=== PATIENT | male | born 1975 | race Caucasian/White ===

== ENCOUNTER 2018-02-08 11:14 | Outpatient (REF) | payer BC, SELFPAY ==
[2018-02-08 21:38] LABS: CREATININE 1.08 mg/dL (0.70-1.30)
== END 2018-02-08 11:34 ==
LOC: NCHCN 11:14
PROVIDERS: PCP Internal Medicine; Visit Provider Internal Medicine
DX: N17.9 Acute kidney failure, unspecified (principal)
CPT/HCPCS: 82565

== ENCOUNTER 2018-02-16 21:40 | Outpatient (REF) | payer BC, SELFPAY ==
[2018-02-16 22:04] LABS: TSH (W/Ref FT4) 1.59 uIU/mL (0.358-3.74)
== END 2018-02-16 22:00 ==
LOC: NCHCN 21:40
PROVIDERS: PCP Internal Medicine; Visit Provider Internal Medicine
DX: E66.9 Obesity, unspecified (principal)
CPT/HCPCS: 84443

== ENCOUNTER 2018-12-26 08:06 | Outpatient (CLI) | payer BC, SELFPAY ==
[2018-12-26 22:12] LABS: Calculated LDL 112 mg/dL; Cholesterol 179 mg/dL (50-200); HDL Cholesterol 52 mg/dL (40-60); Triglyceride 78 mg/dL (30-150)
== END 2018-12-26 08:26 ==
PROVIDERS: PCP Internal Medicine; Visit Provider Internal Medicine
DX: Z82.49 Family history of ischemic heart disease and other diseases of the circulatory system (principal); E66.9 Obesity, unspecified
CPT/HCPCS: 80061

== ENCOUNTER → 2020-01-22 09:38 | Outpatient (REF) | payer OTHER, SELFPAY ==
[2020-01-22 22:34] LABS: Anion Gap 10.6 mmol/L (3-11); BUN 18 mg/dL (7-18); CO2 23.4 mmol/L (21.0-32.0); CREATININE 1.21 mg/dL (0.70-1.30); Calcium 8.9 mg/dL (8.5-10.1); Calculated LDL 119 mg/dL (<100); Chloride 105 mmol/L (98-107); Cholesterol 186 mg/dL (<200); Glucose 98 mg/dL (74-106); HDL Cholesterol 48 mg/dL (40-60); Potassium 4.4 mmol/L (3.5-5.1); Sodium 139 mmol/L (136-145); Triglyceride 96 mg/dL (<150)
== END ==
LOC: NCHCN 09:38
PROVIDERS: PCP Internal Medicine; Visit Provider Internal Medicine
DX: E66.9 Obesity, unspecified (principal); Z13.220 Encounter for screening for lipoid disorders
CPT/HCPCS: 80048; 80061

== ENCOUNTER 2021-04-20 15:04 | Outpatient (REF) | payer OTHER, SELFPAY ==
[2021-04-20 15:37] LABS: Anion Gap 11.3 mmol/L (3-11); BUN 15 mg/dL (7-18); CO2 23.7 mmol/L (21.0-32.0); CREATININE 1.2 mg/dL (0.70-1.30); Calcium 8.9 mg/dL (8.5-10.1); Calculated LDL 128 mg/dL (<100); Chloride 102 mmol/L (98-107); Cholesterol 188 mg/dL (<200); Glucose 97 mg/dL (74-106); HDL Cholesterol 39 mg/dL (40-60); Potassium 4.3 mmol/L (3.5-5.1); Sodium 137 mmol/L (136-145); Triglyceride 106 mg/dL (<150)
== END 2021-04-20 15:05 | disposition home or self-care (01) ==
LOC: NCHCN 15:04
PROVIDERS: PCP Internal Medicine; Visit Provider Internal Medicine
DX: E66.9 Obesity, unspecified (principal); R03.0 Elevated blood-pressure reading, without diagnosis of hypertension; Z13.220 Encounter for screening for lipoid disorders; Z82.49 Family history of ischemic heart disease and other diseases of the circulatory system
CPT/HCPCS: 80048; 80061; 85610

== ENCOUNTER 2021-06-18 20:45 | Outpatient (REF) | payer OTHER, SELFPAY ==
--- OUTSIDE RECORDS SUMMARY | 2021-06-18 20:50 | XMS_ITS | Encounter Summary ---
:1975 Author Organization [facility] Address [address] [place] [address] Care Team Providers Name Role Phone Alberto Kaufman MD Primary Care Provider Reason for Visit Reason Comments Follow-up psoriasis - doing well on ot ezla, no concerns today Encounter Details Date Type Department Care Team Description 02/18/2016 Office Visit [facility] Khushbu Kaufman MD [address] [place] [address] Psoriasis (Primary Dermatology - [facility] Yennifer Cornejo MD [address] [place] [address] Dx) [place] Parviz Mckinley MD [address] [place], [place] [phone] [place] [address] [id number] Social History Tobacco Use Types Packs/Day Years Used Date Former Smoker Cigarettes 2 19 Quit: 05/15/19 15 Smokeless Tobacco: Never Used Comments: exposed to second hand smoke a s a child Alcohol Use Standard Drinks/Week Comments Yes 0 (1 standard drink = 0.6 oz pure alcoho l) social Alcohol Habits Answer Date Recorded How often do you have a drink containing alcohol? Not asked How many drinks containing alcohol do you have on a typical Not asked day when you are drinking? How often do you have six or more drinks on one occasion? No t asked Comment: social 07/24/2014 Sex Assigned at Date Recorded Not on file documented as of this encounter Functional Status Functional Status Response Date of Assessment Because of a physical, mental, or emotional condition, No 10/29/2014 does this person have difficulty doing errands alone such as visiting a doctor's office or shopping? Cognitive Status Response Date of Assessment Because of a physical, mental, or emotional condition, No 10/29/2014 does this person have serious difficulty concentrating, remembering, or making decisions? documented as of this encounter Patient Instructions Patient InstructionsParviz Mckinley MD - 02/18/2016 10:00 EST Recommendations for Sun Protection Ultraviolet (UV) radiation is a known carcinogen (cancer-causing agent) and is primarily responsiblefor most skin cancers, including Basal Cell Carcinoma, Squamous Cell Carcinoma, and many Melanomas. UV radiation also rapidly ages the skin, leading to wrinkles, uneven color, and poor texture. Minimizing UV exposure has been shown in multiple studies to decrease the likelihood of developing cancers and pre-cancers of the skin, as well as improve overall appearance. To minimize UV exposure: 1) Avoid exposure to sunlight during the middle of the day (10am to 4pm). Seek shade when outside during these hours. Limit outdoor activities to automotive fuel injection servicer and/or evening hours when the sunlight isless intense. Remember that UV is reflected from water and snow, and can pass through window glass. It is still possible to get burned during cloudy weather and in the winter months. You can check the forecast for the UV Index in your area at most weather sites online. If the UV index is 3 or higher, sun protection/avoidance is recommended. 2) Wear protective clothing. Hats with wide brims that cover the ears and neck, sunglasses (sun exposure increases your risk for cataracts), long-sleeved shirts, long pants, and closed-top shoes offer good protection. Many makers of outdoor clothing test their fabrics for UV Protection Factor (UPF), which is a guide to the level of protection a particular item of clothing should provide. In general, loose weaves (Cotton) and quality analyst-colored fabrics offer less protection than tighter weaves or darker/thicker fabrics. It is possible to get a sunburn through clothing, especially if it is wet. 3) Use sunscreen on exposed areas. Choose a sunscreen that has a Sun Protection Factor (SPF) of 30+ or higher. Apply the sunscreen generously (so much that you can barely rub it in) to exposed areas 30minutes before sun exposure. Reapply every 2-3 hours, especially if you are in water or sweating. Ifyou tend to break out from sunscreen, choose a sunscreen designed for Sensitive Skin and/or one with physical blocking agents, such as Zinc Oxide and Titanium Dioxide. For vigorous activity, look for Sport sunscreens, which are resistant to sweating. 4) Avoid artificial sources of UV, such as tanning beds or sun lamps. The UV emitted by these devices is just as damaging, if not more so, than natural sunlight. There is a well-documented increase in the incidence of all common skin cancers in frequent tanning bed users. Other considerations: Vitamin D: Exposure to UV light is one of the ways your body gets Vitamin D, a necessary nutrient. Other sources are from the diet and/or dietary supplements. If you are actively avoiding the sun, it may be advisable to discuss Vitamin D supplementation with your Primary Care Provider (PCP). In general, taking a supplement of 1,000 to 2,000 International Units (IU) of Vitamin D3 is safe and well-tolerated in individuals who get minimal sun exposure and have normal kidney function. However, more or less Vitamin D may be recommended, depending on your individual needs, and the use of such supplementsshould be discussed with your PCP. For more information about sun protection and skin cancer: www.skincancer.org Recommended sunscreens: Chemical sunscreen Neutrogena Ultra Sheer Dry Touch (helioplex) Aveeno (same sunscreen as in Neutrogena) Coppertone Sport La Yayo-Posay Anthelios (mexoryl -good UVA and UVB) Vichy (mexoryl ??? available in [place]) Gel formulations good for hair bearing skin Bullfrog Alcohol based - goes on quickly and good for skin with hair Solbar Physical sunblock good for sensitive skin (titanium dioxide and zinc oxide chemical/fragrance free) Blue Lizard sensitive COTZ TiZO (comes in tinted form) Neutrogena pure and free baby or sensitive Recommended sun protection clothing websites www.sunprecautions.Ideedock www.coolibar.Ideedock www.Business Engine www.Military Wraps documented in this encounter Discharge Disposition Disposition Code Departure Means Destination Auto Discharge documented in this encounter Progress Notes Parviz Mckinley MD - 02/18/2016 1000 EST Dermatology Outpatient Visit Note Chief Complaint Patient presents with ??? 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 Akbar is a 40 y.o. male who presents for follow up for palmoplantar psoriasis. Since starting the apremilast he reports his hands are 100% better his feet are 60% better. He is very happy with treatment. Denies fevers, chills, and infections. The patient has no other concerns today on exam. See documentation in PRISM for medical, surgical, social and family history, and the review of systems which I reviewed at this visit. He has a current medication list which includes the following prescription(s): apremilast, apremilast, clobetasol, and ketoconazole. He is allergic to penicillins. Objective Mr. Akbar is healthy male that is alert and oriented to person, place and time. He has Fitzpatricktype I skin. Cutaneous exam was performed today of the scalp, face, neck, upper extremities, hands, trunk, lower extremities, feet. The remainder of the skin examination was otherwise normal except for: 1. On the palmar hands there is no scale 2. On the plantar feet bilaterally there is thick scale, significantly improved from last visit, nowjust involving the posterior heels. 3. 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 Patient very satisfied. 100% hands improved. ?? Continue apremilast 30mg BID, refills taken care of by specialty pharmacy ?? Follow up in 6 months. ?? Latest literature shows no lab monitoring needed. Follow up: 6 months Parviz Mckinley MD 02/18/2016 10:24 Attestation Statement: I saw and examined the patient with the resident/fellow. I agree with the findings and plan of care documented in the resident's/fellow's note. Yennifer Cornejo MD 03/17/2016 Raya Thao - 02/18/2016 1000 EST Review of Systems Constitutional: Negative for fatigue, fever and unexpected weight change. HENT: Negative for mouth sores. Eyes: Negative for pain. Respiratory: Negative for cough and shortness of breath. Cardiovascular: Negative for chest pain and palpitations. Gastrointestinal: Negative for abdominal pain, blood in stool, constipation, diarrhea, nausea and vomiting. Genitourinary: Positive for frequency. Negative for dysuria and hematuria. Musculoskeletal: Negative for myalgias, joint swelling, arthralgias and muscle stiffness in the morning. Skin: Negative for rash. Neurological: Negative for numbness and headaches. Endo/Heme/Allergies: Does not bruise/bleed easily. Psychiatric/Behavioral: Negative for sleep disturbance. The patient is not nervous/anxious. Raya Unger 02/18/2016 10:07 documented in this encounter Plan of Treatment Not on filedocumented as of this encounter Visit Diagnoses Diagnosis Psoriasis - Primary Other psoriasis documented in this encounter Care Teams Answering Service Telephone Operator Relationship Specialty Start Date End Date Larry Kaufman MD PCP - General 04/01/14 [address] [place] [address] documented as of this encounter
--- OUTSIDE RECORDS SUMMARY | 2021-06-18 20:50 | XMS_ITS | Clinical Summary ---
:1975 Author Organization [facility] Address [address] [place] [address] Care Team Providers Name Role Phone Alberto Kaufman MD Primary Care Provider Allergies Active Allergy Reactions Severity Noted Date Comments Penicillins Anaphylaxis High 04/02/2014 Closing of thro at Medications Medication Sig Dispensed Refills Start Date End Date Status clobetasol (TEMOVATE) Apply 60 g 45 g 5 09/11/2015 Active 0.05 % ointment topically to affected area 2 times daily. Apply topically twice a day to affected areas. Do not apply to face, armpit or groin. ketoconazole Apply topically to 1 Bottle 11 09/11/2015 Active (NIZORAL) 2 % affected area, shampooIndications: leave on 3-5 Seborrheic dermatitis minutes then rinse off apremilast (OTEZLA Follow directions 1 Pack 0 09/16/2015 Active STARTER) 28 day dose on dose pack. pack Specialty Pharmacy Additional Information Patient not taking. Reported on 02/18/2016 apremilast (OTEZLA) 30 mg Take 1 Tab by mouth 2 180 Tab 1 Active tablet times daily. Specialty Pharmacy hydrocortisone 2.5 % Apply topically 2 times 20 g 3 05/06 Active creamIndications: Seborrheic daily. dermatitis Active Problems No known active problems Encounters Date Type Specialty Care Team Description 05/03/2021 Transcribe Orders Gastroenterology and Fei Alvarez for Hepatology Jacquie Villa colon cancer (Primary Dx) from Last 3 Months Family History Medical History Relation Name Comments Cardiac Disease Brother Arthritis Father Defects Father Hearing Loss Father Heart Attack Father Heart Disease Father Hypertension Father Stroke Father Vision Loss Father Arthritis Mother Cancer Mother Depression Mother Hearing Loss Mother Hypertension Mother Relation Name Status Comments Brother Father Mother Social History Tobacco Use Types Packs/Day Years [...] Assigned at Date Recorded Not on file Last Filed Vital Signs Vital Sign Reading Time Taken Comments Blood Pressure 150/86 07/24/2014 1159 EDT Pulse 78 07/24/2014 1159 EDT Temperature 36.7 ??C (98.1 ??F) 07/24/2014 1159 EDT Respiratory Rate 16 07/24/2014 1159 EDT Oxygen Saturation 98% 07/24/2014 1159 EDT Inhaled Oxygen Concentration - - Weight 172.4 kg (380 lb) 07/24/2014 1159 EDT Height 188 cm (6' 2.02) 07/24/2014 1159 EDT Body Mass Index 48.77 07/24/2014 1159 EDT Plan of Treatment Health Maintenance Due Date Last Done Comments COVID-19 Vaccine (1) 11/03/1979 Hepatitis C Screen Completed 02/27/2015 Care Teams Physical Therapy Attendant Relationship Specialty Start Date End Date Larry Kaufman MD PCP - General 04/01/14 [address] [place] [address]
--- OUTSIDE RECORDS SUMMARY | 2021-06-18 20:50 | XMS_ITS | Encounter Summary ---
:1975 Author Organization [facility] Address [address] [place] [address] Care Team Providers Name Role Phone Alberto Kaufman MD Primary Care Provider Reason for Visit Reason Onset Date Comments Requesting Sooner Appointment 05/02/2016 Encounter Details Date Type Department Care Team Description 05/02/2016 Telephone [facility] Olivia Mckinley MD Requesting Sooner Dermatology - Main [address] [facility] [place] [address] [address] [place] [address] Social History Tobacco Use Types Packs/Day Years [...] making decisions? documented as of this encounter Ordered Prescriptions Prescription Sig Dispensed Refills Start Date End Date hydrocortisone 2.5 % Apply topically 2 20 g 3 05/07/19 17 creamIndications: times daily. Seborrheic dermatitis documented in this encounter Miscellaneous Notes Telephone Encounter - Parviz Mckinley MD - 05/06/2016 1117 EDT I will have the patient use hydrocortisone 2.5% cream twice daily for 5-10 days. I will call this in to his pharmacy. Disp 1 bottle, 1 R. If no improvement then he should come in. Parviz Mckinley MD 11:18 05/06/2016 elephone Encounter - Eliane Viera RN - 05/04/2016 1357 EDT Patient reports: Developed a flare of his symptoms on Monday night Has a little on his face Feet are starting to scale Both hands are starting to scale up, developing small blisters No acute illness No change in personal care products No change in medications Treatment: Taking Apremilast as prescribed morning and evening Patient wanted to be seen for this flare however his work schedule does not fit with the availability of our open appointments Patient instructed to resume his topical medications Clobetasol 0.05% ointment to hands and feet twice daily Ketoconazole shampoo to face, leave on for 3-5 min and rinse off If this is not helpful patient will phone Monday AM to see if there have been any cancellations Triage note to Parviz Mckinley MD to make him aware and for any further instructions ELIANE VIERA RN 05/04/2016 14:11 elephone Encounter - Kelley Campos - 05/02/2016 0955 EDT Patient would like to be seen today or tomorrow for a flare up of symptoms, patient did not care to elaborate. Please call to schedule. Patient sees Dr. Mckinley, but is willing to see any provider. documented in this encounter Plan of Treatment Not on filedocumented as of this encounter Visit Diagnoses Diagnosis Seborrheic dermatitis - Primary Seborrheic dermatitis, unspecified documented in this encounter Care Teams Cardiology Consultants Relationship Specialty Start Date End Date Larry Kaufman MD PCP - General 04/01/14 [address] [place] [address] documented as of this encounter
--- OUTSIDE RECORDS SUMMARY | 2021-06-18 20:50 | XMS_ITS | Encounter Summary ---
:[address] [facility] Address [address] [place] [address] Care Team Providers Name Role Phone Alberto Kaufman MD Primary Care Provider Encounter Details Date Type Department Care Team Description 04/14/2016 Ambulatory Pharmacy [facility] Ambulatory Pharmacy [facility] Main [place] [address] [place] [address] Social History Tobacco Use Types Packs/Day Years [...] making decisions? documented as of this encounter Plan of Treatment Not on filedocumented as of this encounter Visit Diagnoses Not on filedocumented in this encounter Care Teams Municipal Court Judge Relationship Specialty Start Date End Date Larry Kaufman MD PCP - General 2/17/15 [address] [place] [address] documented as of this encounter
--- OUTSIDE RECORDS SUMMARY | 2021-06-18 20:50 | XMS_ITS | Encounter Summary ---
:1975 Author Organization [facility] Address [address] [place] [address] Care Team Providers Name Role Phone Alberto Kaufman MD Primary Care Provider Encounter Details Date Type Department Care Team Description 02/11/2016 Ambulatory Pharmacy [facility] Ambulatory Pharmacy [facility] Main [place] [address] [place] [address] Social History Tobacco Use Types [...] making decisions? documented as of this encounter Progress Notes Sonya Lu - 02/11/2016 5508 EST [facility] will deliver Monday02/12/16 between 9am-12pm. (Note for GMM: Go through first door into the breezeway - may look like you are entering the house - and then know on the second door so patient can hear knocking. documented in this encounter Plan of Treatment Not on filedocumented as of this encounter Visit Diagnoses Not on filedocumented in this encounter Care Teams Ux Architect Relationship Specialty Start Date End Date Larry Kaufman MD PCP - General 04/01/[address] [place] [address] documented as of this encounter
--- OUTSIDE RECORDS SUMMARY | 2021-06-18 20:50 | XMS_ITS | Encounter Summary ---
:1975 Author Organization [facility] Address [address] [place] [address] Care Team Providers Name Role Phone Alberto Kaufman MD Primary Care Provider Encounter Details Date Type Department Care Team Description 05/11/2016 Ambulatory Pharmacy [facility] Ambulatory Pharmacy [facility] Main [place] [address] [place] [address] Social History Tobacco Use Types [...] on filedocumented in this encounter Care Teams Television Production Assistant Relationship Specialty Start Date End Date Larry Kaufman MD PCP - General 2/17/15 [address] [place] [address] documented as of this encounter
--- OUTSIDE RECORDS SUMMARY | 2021-06-18 20:50 | XMS_ITS | Encounter Summary ---
:1975 Author Organization [facility] Address [address] [place] [address] Care Team Providers Name Role Phone Alberto Kaufman MD Primary Care Provider Reason for Referral Referral (Routine/Next Available) - Receiving Office to Obtain Authorization Specialty Diagnoses / Procedures Referred By Contact Refer red To Contact Diagnoses Screening for colon cancer Jacquie Alvarez Mp[facility] Gi Procedures COLONOSCOPY [address] [facility] [place] [address] [place] [address] Fax: Referral ID Status Reason Start Expiration Visits Visits Date Date Requested Authorized [id number] Receiving Office 05/03/2021 1 1 to Obtain Authorization Encounter Details Date Type Department Care Team Description 05/03/2021 Transcribe Orders [facility] Mil Alvarez for Gastroenterology - Main Jacquie Villa colon cancer [place] [address] [facility] (Primary Dx) [address] [phone] Social History Tobacco Use Types Packs/Day Years [...] as of this encounter Plan of Treatment Scheduled Orders Name Type Priority Associated Diagnoses Order S chedule COLONOSCOPY GI Routine Screening for colon cancer E xpected: 05/03/2021 (Approximate), Expires: 11/03/2022 documented as of this encounter Visit Diagnoses Diagnosis Screening for colon cancer - Primary Special screening for malignant neoplasm s, colon documented in this encounter Care Teams Equal Opportunity Officer Relationship Specialty Start Date End Date Larry Kaufman MD PCP - General 04/01/14 [address] [place] [address] documented as of this encounter
--- OUTSIDE RECORDS SUMMARY | 2021-06-18 20:50 | XMS_ITS | Encounter Summary ---
:1975 Author Organization [facility] Address [address] [place] [address] Care Team Providers Name Role Phone Alberto Kaufman MD Primary Care Provider Reason for Visit Reason Onset Date Comments Appointment Related 08/29/2016 Encounter Details Date Type Department Care Team Description 08/29/2016 Telephone [facility] Margoth Gifford sa, MD Appointment Related Dermatology - [address], [address] [place], [place] [id number] [place] [address] [phone] (Wo rk) Social History Tobacco Use Types Packs/Day Years [...] making decisions? documented as of this encounter Miscellaneous Notes Telephone Encounter - Latrice Holden - 08/29/[address] Gifford, Can you please reschedule him? Can double book next Monday or week after. He asa Dr. Mckinley patient who missed his appt with me recently. Per Emily Sabillon MA: left message for patient to return call to schedule appointment. 08/25/2016. documented in this encounter Plan of Treatment Not on filedocumented as of this encounter Visit Diagnoses Not on filedocumented in this encounter Care Teams Allergy Nurse Relationship Specialty Start Date End Date Larry Kaufman MD PCP - General 04/01/14 [address] [place] [address] documented as of this encounter
--- OUTSIDE RECORDS SUMMARY | 2021-06-18 20:50 | XMS_ITS | Encounter Summary ---
:1975 Author Organization [facility] Address [address] [place] [address] Care Team Providers Name Role Phone Alberto Kaufman MD Primary Care Provider Reason for Visit Reason Onset Date Comments Appointment Related 02/10/2016 Encounter Details Date Type Department Care Team Description 02/10/2016 Telephone [facility] Rosana Pereira nt Related Dermatology - [facility] NANETTE Mckeon [address] [place] [address] Social History Tobacco Use Types [...] documented as of this encounter Progress Notes Linda Pereira RPH - 02/10/2016 1435 EST Otezla (Apremilast): I spoke with Kike today regarding his Otezla refill. He reports that he has not missed any doses and has 6 days of medication remaining. We discussed taking the medication twice daily, as prescribed. He feels that it has helped to clear the psoriasis on his hands and feet and he is happy with the results. He did not complain of any adverse effects associated with the medication. Patient was instructed to call clinic with any questions. He would like to schedule a follow-up appointment with Dr. Mckinley. Linda Pereira, PharmD Pharmacist Clinician - Dermatology 02/10/2016 documented in this encounter Miscellaneous Notes Telephone Encounter - Eliane Viera RN - 02/15/2016 1204 EST Patient scheduled 02/18/16 at 10 AM with MD ELIANE Evans RN 02/15/2016 12:04 documented in this encounter Plan of Treatment Not on filedocumented as of this encounter Visit Diagnoses Not on filedocumented in this encounter Care Teams Heel Seat Fitter Machine Relationship Specialty Start Date End Date Larry Kaufman MD PCP - General 04/01/14 [address] [place] [address] documented as of this encounter
--- OUTSIDE RECORDS SUMMARY | 2021-06-18 20:50 | XMS_ITS | Encounter Summary ---
:1975 Author Organization [facility] Address [address] [place] [address] Care Team Providers Name Role Phone Alberto Kaufman MD Primary Care Provider Reason for Visit Reason Onset Date Comments Prior Auth, Medication 02/11/2016 Encounter Details Date Type Department Care Team Description 02/11/2016 Telephone [facility] Olivia Mckinley MD Prior Auth, Medication Ambulatory Pharmacy - [address] [place] [address] [facility] [place] [address] Social History Tobacco Use Types Packs/Day Years [...] this encounter Miscellaneous Notes Telephone Encounter - Sonya Lu - 02/11/2016 1611 EST Prior Authorization Approval Medication: Otezla 30mg Tablets Approved: 02/11/16-02/10/17 Authorization Number: [id number] Benefits Information or Other Notes: [facility] Pharmacy: [facility] Prior Authorization Submission Process Medication: Otezla 30mg Tablets Insurance: [facility] Date PA Request Received: 02/10/16 PA Submission Date: 02/11/16 Submitted by: Sonya Huitron Phone: documented in this encounter Plan of Treatment Not on filedocumented as of this encounter Visit Diagnoses Not on filedocumented in this encounter Care Teams Spinning Frame Changer Relationship Specialty Start Date End Date Larry Kaufman MD PCP - General 04/01/14 [address] [place] [address] documented as of this encounter
--- OUTSIDE RECORDS SUMMARY | 2021-06-18 20:51 | XMS_ITS | Encounter Summary ---
:1975 Author Organization [facility] Address [address] [place] [address] Care Team Providers Name Role Phone Alberto Kaufman MD Primary Care Provider Encounter Details Date Type Department Care Team Description 03/10/2015 Orders Only [facility] Terence Beauchamp, [facility] Dermatology - [address] [phone] [place] [address] Social History Tobacco Use Types Packs/Day Years [...] Sig Dispensed Refills Start Date End Date adalimumab (HUMIRA PEN) 40 Inject 1 Pen into 6 Pen 2 07/21/2015 mg/0.8 mL pen kit the skin every 14 days documented in this encounter Plan of Treatment Not on filedocumented as of this encounter Visit Diagnoses Not on filedocumented in this encounter Care Teams Orthopedic Physical Therapist Relationship Specialty Start Date End Date Larry Kaufman MD PCP - General 04/01/14 [address] [place] [address] documented as of this encounter
--- OUTSIDE RECORDS SUMMARY | 2021-06-18 20:51 | XMS_ITS | Encounter Summary ---
:1975 Author Organization [facility] Address [address] [place] [address] Care Team Providers Name Role Phone Alberto Kaufman MD Primary Care Provider Reason for Visit Reason Comments Lung Infection Was diagnosed with pneumonia and treated with Levaquin and Z-pack 2 weeks ago. C/o right lung pa in starting 9 days ago and found to have a pus pocket to lung. Feels that he has less room to breath comfortably but denies SOB. No recent fevers. No cough. Referred by field return repairer for further ev al and possible drainage. Encounter Details Date Type Department Care Team Description 05/27/2014 Emergency [facility] Allen Acevedo IV, MD [address] [place] [address], [address] [place] [address] Pleural effusion (Primary Dx); Emergency Department Emergency, MD Juan Pneumonia - [facility] [address] [place] [address] Social History Tobacco Use Types Packs/Day Years Used Date Light Tobacco Smoker 0.25 Sex Assigned at Date Recorded Not on file documented as of this encounter Last Filed Vital Signs Vital Sign Reading Time Taken Comments Blood Pressure 139/90 05/27/2014 2355 EDT Pulse 78 05/27/2014 2355 EDT Temperature 36.9 ??C (98.5 ??F) 05/27/2014 2355 EDT Respiratory Rate 16 05/27/2014 2355 EDT Oxygen Saturation 99% 05/27/2014 2355 EDT Inhaled Oxygen Concentration - - Weight 172.4 kg (380 lb) 05/27/20141926 EDT Height 188 cm (6' 2) 05/27/20141926 EDT Body Mass Index 48.79 05/27/20141926 EDT documented in this encounter Discharge Instructions Ankit James IV, MD - 05/27/2014 Follow up as directed by the pulmonary service for the IR thoracentesis. Seek re-evaluation for worsening symptoms. documented in this encounter Discharge Disposition Disposition Code Departure Means Destination Home or Self Care Walk-out Home documented in this encounter Consult Notes Amalia Vasquez MD - 05/27/2014 2244 EDT Pulmonary consult Date: 05/27/2014 PCP: Larry Kaufman MD Chief Complaint: Pleurisy, PNA HPI: Pt. Is a pleasant 38 yo M who 2 weeks prior began to develop right sided back pain, shoulder pain and pleurisy associated with a yellow/green productive cough and fevers. CXR and CT A/P revealed a RLL PNA without associated effusion. He was treated with a course of levofloxacin which he completed with resolution of his fevers and transition to a dry cough 5 days ago, however his right sided pleurisy has persisted. A chest xray was completed at that time which revealed a RLL effusion. He was placed on azithromycin 5 days ago on the day of that CXR and has completed the Z pack as well. One day prior to presentation today he developed worsening right sided pleurisy and splinting. His PCP was in contact with our pulmonary office and given concern of a parapneumonic effusion he presented to our ED for CT Chest. ROS Positive: As per HPI ROS Negative: No hemoptysis, joint pains, rash. Review of Systems All other systems reviewed and negative, a 12 point ROS was performed. Past Medical History As per HPI Past Surgical History None Medications As per HPI Allergies Allergies Allergen Reactions ??? Penicillins Anaphylaxis Closing of throat Social History Works in an office, distant trace smoking history Family History Brother with congenital heart disease Examination BP 145/83 Pulse 85 Temp(Src) 37.1 ??C (98.7 ??F) (Oral) Resp 18 Ht 188 cm (74) Wt 172.367kg (380 lb) BMI 48.77 kg/m2 SpO2 100% RA Gen: Alert and oriented, no evidence of distress Eyes: anicteric Mouth: poor to moderate dentition Neck: no cervical or supraclavicular adenopathy CVS: RRR, S1+S2 normal, no murmurs/rubs/gallop Resp: No respiratory distress, clear Abdo: Soft, non-tender. No masses/hepatosplenomegaly, Bowel sounds normal. Ext: No cyanosis or edema Neuro: Grossly intact Labs: Lab Results Component Value Date WBC 12.42* 05/27/2014 HGB 13.1* 05/27/2014 HCT 38.4* 05/27/2014 MCV 81 05/27/2014 PLT 358* 05/27/2014 Imaging: CT chest here: Layering right sided small to moderate pleural effusion. Some associated consolidated lung. Bedside US: Simple appearing 2cm deep pleural effusion on right, none on left Impression: Pt. Is a pleasant 38 yo M who presents with CAP for the past 2 weeks complicated by current parapneumonic effusion without signs of active infection. Parapneumonic effusion causing active pleurisy does require sampling to ensure that this is not purulent in nature. Recommendations: -IR guided thoracentesis with reflex to chest tube if purulent effusion (order in, will call IR tomorrow) -Please send fluid for pH, glucose, LDH, protein, gram stain (All orders are in) -Stable for D/C currently Jared Ahmadi MD Attestation statement: I saw and examined the patient with the resident/fellow. I agree with the findings and plan of care documented in the resident's/fellow's note. Patient seen at outside ED 15 days ago with back and shoulder pain and fevers. CT abdomen perfomed at that time and showed a RLL cvlorhefem-wjnsrdohyj-[id number] significant effusion. Patient was given a course of levaquin but back pain/shoulder pain persisted as did fevers. He had a CXR on 05/23/14 which showed a new right pleural effusion. Patient here this evening for further evaluation of the effusion. He reports that his fevers have improved somewhat but it remains difficult to take a deep breath and he continues to have pleuritic chest/back pain. CT chest performed this evening that shows amoderate right-sided effusion without clear evidence of loculation, with some compressive atelectasis but otherwise normal appearing lung parenchyma. Patient with a parapneumonic effusion that warrants sampling. Will: -arrange IR tap in am with tube drainage if purulent -patient told to be NPO until he hears from us in am Amalia Vasquez MD documented in this encounter ED Notes Chloé Sampson - 05/27/20142027 EDT Blood drawn via saline lock per protocol, tiger and purple tube(s) sent to lab per order. Alonzo taylor RN - 05/27/20142024 EDT Pt resting in bed, denies SOB, lung sounds clear but diminished; pt able to take deep inspiration without increased pain; placed pt O2 sat monitoring; O2 sat = 99% RA Ankit Acevedo IV, MD - 05/27/20141950 EDT DOS: 05/27/2014 Chief Complaint Patient presents with ??? Lung Infection Was diagnosed with pneumonia and treated with Levaquin and Z-pack 2 weeks ago. C/o right lung painstarting 9 days ago and found to have a pus pocket to lung. Feels that he has less room to breathcomfortably but denies SOB. No recent fevers. No cough. Referred by field return repairer for further eval and possible drainage. The patient is a 38 y.o. male who presents today with Lung Infection HPI Comments: Kike Akbar is a 38 y.o. male with a recent history of pneumonia, who presents to the ED complaining of dyspnea. Patient states that recently he was diagnosed with pneumonia at [facility]. He states that he has been following up with his PCP but this afternoon he started having a lot of trouble breathing. Patient denies chills, fever, hemoptysis, headache, chest pain, and diaphoresis. He reports feeling a tightness in his chest when he inhales deeply. Shortness of Breath Severity: Moderate Onset quality: Gradual Timing: Constant Progression: Worsening Chronicity: New Context: not activity, not emotional upset, not known allergens, not pollens, not strong odors, not URI and not weather changes Relieved by: Nothing Worsened by: Nothing tried Ineffective treatments: None tried Associated symptoms: fever (last fever 2 days ago) Associated symptoms: no abdominal pain, no chest pain, no cough, no diaphoresis and no headaches Risk factors: obesity and tobacco use The history is provided by the patient and the spouse. Review of Systems Constitutional: Positive for fever (last fever 2 days ago). Negative for diaphoresis. HENT: Negative for facial swelling, nosebleeds, postnasal drip and sneezing. Eyes: Negative for pain. Respiratory: Positive for shortness of breath. Negative for cough. Cardiovascular: Negative for chest pain and leg swelling. Gastrointestinal: Negative for abdominal pain. Genitourinary: Negative for dysuria, frequency, hematuria and flank pain. Musculoskeletal: Negative for myalgias, back pain and arthralgias. Neurological: Negative for seizures and headaches. Psychiatric/Behavioral: Negative for behavioral problems, sleep disturbance and agitation. The patient is not hyperactive. All other systems reviewed and are negative. History reviewed. No pertinent past medical history. History reviewed. No pertinent past surgical history. Allergies Allergen Reactions ??? Penicillins Anaphylaxis Closing of throat History Substance Use Topics ??? Smoking status: Light Tobacco Smoker -- 0.25 packs/day ??? Smokeless tobacco: Not on file ??? Alcohol Use: Not on file Family History Problem Relation Age of Onset ??? Heart Attack Father ??? Cardiac Disease Brother Vital Signs Temp: 36.9 ??C (98.5 ??F) Temp src: Oral Pulse: 78 Resp: 16 SpO2: 99 % BP: 139/90 mmHg BP Device: BP Machine Patient Position: Sitting BP Cuff Location: Right arm O2 Device: None (Room air) Physical Exam Constitutional: He is oriented to person, place, and time. He appears well-nourished. Obese HENT: Head: Normocephalic and atraumatic. Eyes: Conjunctivae are normal. Pupils are equal, round, and reactive to light. Neck: Normal range of motion. Cardiovascular: Normal rate and regular rhythm. Pulmonary/Chest: Effort normal and breath sounds normal. Lung sounds nl Abdominal: Soft. Morbidly obese Musculoskeletal: He exhibits no edema. Neurological: He is alert and oriented to person, place, and time. Skin: Skin is warm. Psychiatric: He has a normal mood and affect. His behavior is normal. Nursing note and vitals reviewed. Radiology orders: CHEST PA AND LATERAL CT CHEST W CONTRAST Imaging Results CT CHEST W CONTRAST (Final result) Result time: 05/28/14 10:35:[address] CHEST WO CONTRAST Final result Narrative: CT CHEST W CONTRAST 05/27/2014 9:10 PM Signs and Symptoms/Comments: R pleural effusion v empyema Technique: A single breath-hold helical CT acquisition was performed through the chest on a multidetector-row scanner with a reconstructed slice thickness of 3 mm and retrospectively reconstructed 0.9 mm thick sections with 0.45 mm overlapping intervals. The scans were obtained from the lung apices through the bases during the intravenous administration of 90-100 cc of 370 mg% nonionic contrast injected at a rate of 2 cc/second. Scans were reviewed on a dedicated PACS workstation for analysis. Comparison: Chest radiograph one hour prior. Findings: The chest wall is normal. No enlarged mediastinal or hilar nodes are present. The heart and pericardium are normal. There is mild diffuse large airways thickening. A 3 mm nodule is present in the right upper lobe (#26). Additional 3 mm nodules which have a triangular configuration are present in the right middle lobe (#386) as well as within the right lower lobe (#371). A few scant areas of centrilobular emphysema are present within the upper lungs. Mild peripheral reticulations are noted within the right upper lobe (#262). There is passive atelectasis within the right lower lobe involving the posterior lateral basal segments secondary to a small right pleural effusion. There is a focal region of heterogeneous low attenuation within the subpleural regions of the lateral basilar segments (#134). No pleural abnormalities are present on the left. The visualized portions of the upper abdomen are normal. There is mild heterogeneous appearance of the medullary cavity with involving the anterior aspect of the right fourth rib (#90), felt to be benign. The bones are otherwise unremarkable for age. Impression: 1. Although there is a simple appearance of a small right pleural fluid collection, there is a focal region of heterogeneous attenuation involving a subpleural region of atelectasis within the right lower lobe suggestive of pneumonia and an associated parapneumonic effusion. In a patient with smoking history, it would be reasonable to obtain followup PA and lateral radiographs to confirm resolution of these findings. 2. Scattered 2-3 mm nodules within the lungs are felt to be inflammatory and/or subpleural/intraparenchymal lymph nodes. 3. Mild emphysema. CHEST PA AND LATERAL (Final result) Result time: 05/27/14 20:22:26 Final result Narrative: CHEST PA AND LATERAL 05/27/2014 8:06 PM Signs and Symptoms/Comments: PNA Comparison: May 23, 2014 and outside study Findings: PA and lateral views of the chest. Heart size is normal. Pulmonary vasculature is normal. The left lung is clear. There is costophrenic angle blunting and increased opacity in the right lung base compatible with effusion and probable associated airspace disease. The lungs are otherwise clear. Bones and soft tissues are age-appropriate. Impression: Continued increased opacity and costophrenic angle blunting in the right lung base which is similar to the previous study, compatible with effusion and airspace disease. Portions of this document may have been prepared with speech recognition software or keyboard oracle database consultant techniques. Minor irregularities or keyboarding misprints may be present. Lab Results C-REACTIVE PROTEIN (Final result) Abnormal Component (Lab Inquiry) Collection Time Result Time CRP 05/27/14 20:22:00 05/27/14 20:59:50 2.2 (H) HEMAGRAM AND DIFFERENTIAL (Final result) Abnormal Component (Lab Inquiry) Collection Time Result Time WBC RBC Hemoglobin HCT MCV 05/27/14 20:22:00 05/27/14 21:18:54 12.42 (H) 4.74 13.1 (L) 38.4 (L) 81 Collection Time Result Time MCH MCHC RDW-CV RDW-SD PLT 05/27/14 20:22:00 05/27/14 21:18:54 27.5 (L) 34.0 13.9 39.4 358 (H) Collection Time Result Time MPV Neutrophils Lymphocytes Monocytes Eosinophils 05/27/14 20:22:00 05/27/14 21:18:54 7.7 52.0 26.0 14.0 (H) 7.0 (H) Collection Time Result Time Basophils ABS Neutrophils ABS Lymphs ABS Monocytes ABS Eosinophils 05/27/14 20:22:00 05/27/14 21:18:54 1.0 6.46 3.23 1.74 (H) 0.87 (H) Collection Time Result Time ABS Basophils Large Platelets Type of Diff: 05/27/14 20:22:00 05/27/14 21:18:54 0.12 (H) Present Manual COMPREHENSIVE METABOLIC PANEL (CMP) (Final result) Abnormal Component (Lab Inquiry) Collection Time Result Time Potassium Sodium Chloride CO2 Total Alkaline Phosphatase 05/27/14 20:22:00 05/27/14 20:59:50 3.7 137 99 29 90 Collection Time Result Time Bilirubin, Total AST ALT Albumin Total Protein 05/27/14 20:22:00 05/27/14 20:59:50 0.6 20 25 3.7 6.7 Collection Time Result Time Creatinine GFR, Calculated BUN Calcium Calculated Calcium 05/27/14 20:22:00 05/27/14 20:59:50 1.12 >60 12 9.4 10.1 Collection Time Result Time Glucose, Serum Fasting? 05/27/14 20:22:00 05/27/14 20:59:50 122 (H) Unknown Xrays visualized by myself and interpreted concurrently with radiologist. Please see radiology reading for further details. Small pleural effusion, ? PNA CT viewed by myself, discussed with and interpreted by the radiologist, please see radiology report for further details. Small pleural effusion, no clear sign of infiltrate CONSULT: Pulmonary (Pedro) Patient had laboratory tests ordered which were reviewed and interpreted by myself. Please see laboratory results for detailed information. Mildly elevated WBC Procedures ED Course: A medical screening exam was performed. The patient is a [address] showed pleural effusion but no empyema. Pulm consulted who feels pt needs IR sampling of effusion but not emergently. No indication for continued abx per pulm. Patient will be discharged and willcontinue to monitor and follow up with IR/Pulmonary. Patient and family were advised of the inherent risks of being discharged and have been instructed to seek medical attention should symptoms worsen or new symptoms emerge. 05/27/2014 22:10 - Consultation with pulmonology. Disposition: Discharged The patient's pain was managed to an adequate level weighing risk vs. benefit of further medications. Upon departure from the Emergency Department, the patient's pain was 0 on a zero to ten scale. Condition at departure from the Emergency Department: Stable ED Current Prescriptions None MDM Number of Diagnoses or Management Options Pleural effusion: Diagnosis management comments: 5 Final diagnoses: Pleural effusion PCP: Larry Kaufman MD This documentation is recorded by Hong Cornell acting as Scribe under the direction and presence of Ankit Acevedo IV, Robert R IV: I personally performed the services recorded by the scribe in my presence. I confirm the scribe's documentation has been reviewed by me to accurately and completely record my work, treatment, procedures, and medical decision making. 05/29/2014 22:40 No flowsheet data found. Linda Nugent, RN - 05/27/2014 1933 EDT Speaking full sentences. Ambulatory to ED room 5, steady gait. Gowned. Warm blanket provided. Call light within reach. supportive at BS. Awaiting provider eval. documented in this encounter Plan of Treatment Not on filedocumented as of this encounter Procedures Procedure Name Priority Date/Time Associated Comments Diagnosis CT CHEST W CONTRAST 05/27/2014 21:10 Resu lts for this EDT procedure are i n the results section. COMPLETE BLOOD COUNT STAT 05/27/2014 20:22 Res ults for this AND DIFFERENTIAL EDT procedure a re in the results section. C REACTIVE PROTEIN STAT 05/27/2014 20:22 Resul ts for this EDT procedure are i n the results section. COMPREHENSIVE STAT 05/27/2014 20:22 Results fo r this METABOLIC PANEL (CMP) EDT proced ure are in the results section. CHEST PA AND LATERAL STAT 05/27/2014 20:06 Res ults for this EDT procedure are i n the results section. documented in this encounter Results CT CHEST W CONTRAST (05/27/2014 21:10 EDT) Anatomical Region Laterality Modality Other Specimen Narrative [facility] - 05/28/2014 10:[address] CHEST W CONTRAST ??05/27/2014 9:10 PM Signs and Symptoms/Comments: ??R pleural effusion v empyema Technique: A single breath-hold helical CT acquisit ion was performed through the chest on a multidetector-row scanner wit h a reconstructed slice thickness of 3 mm and retrospectively re constructed 0.9 mm thick sections with 0.45 mm overlapping interv als. ??The scans were obtained from the lung apices through the bases d uring the intravenous administration of 90-100 cc of 370 mg% n onionic contrast injected at a rate of 2 cc/second. Scans were review ed on a dedicated PACS workstation for analysis. Comparison: Chest radiograph one hour prior. Findings: The chest wall is normal. No enlarged mediastinal or hilar nodes a re present. The heart and pericardium are normal. There is mild diffuse large airways thic kening. A 3 mm nodule is present in the right upper lobe (#26). A dditional 3 mm nodules which have a triangular configuration are pres ent in the right middle lobe (#386) as well as within the right lower lobe (#371). A few scant areas of centrilobular emphysema are pre sent within the upper lungs. Mild peripheral reticulations are noted within the right upper lobe (#262). There is passive atelectasis wit hin the right lower lobe involving the posterior lateral basal se gments secondary to a small right pleural effusion. There is a focal region of heterogeneous low attenuation within the subpleural region s of the lateral basilar segments (#134). No pleural abnormalitie s are present on the left. The visualized portions of the upper abd omen are normal. There is mild heterogeneous appearance o f the medullary cavity with involving the anterior aspect of the rig ht fourth rib (#90), felt to be benign. The bones are otherwise unrem arkable for age. Impression: 1. Although there is a simple appearance of a small right pleural fluid collection, there is a focal regio n of heterogeneous attenuation involving a subpleural regio n of atelectasis within the right lower lobe suggestive of pneumonia and an associated parapneumonic effusion. In a patient wit h smoking history, it would be reasonable to obtain followup PA and lateral radiographs to confirm resolution of these findings. 2. Scattered 2-3 mm nodules within the l ungs are felt to be inflammatory and/or subpleural/intrapare nchymal lymph nodes. 3. Mild emphysema. Procedure Note Ren Rowell MD - 05/28/2014 CT CHEST W CONTRAST 05/27/2014 9:10 PM Signs and Symptoms/Comments: R pleural effusion v empyema Technique: A single breath-hold helical CT acquisit ion was performed through the chest on a multidetector-row scanner wit h a reconstructed slice thickness of 3 mm and retrospectively re constructed 0.9 mm thick sections with 0.45 mm overlapping interv als. The scans were obtained from the lung apices through the bases d uring the intravenous administration of 90-100 cc of 370 mg% n onionic contrast injected at a rate of 2 cc/second. Scans were review ed on a dedicated PACS workstation for analysis. Comparison: Chest radiograph one hour prior. Findings: The chest wall is normal. No enlarged mediastinal or hilar nodes a re present. The heart and pericardium are normal. There is mild diffuse large airways thic kening. A 3 mm nodule is present in the right upper lobe (#26). A dditional 3 mm nodules which have a triangular configuration are pres ent in the right middle lobe (#386) as well as within the right lower lobe (#371). A few scant areas of centrilobular emphysema are pre sent within the upper lungs. Mild peripheral reticulations are noted within the right upper lobe (#262). There is passive atelectasis wit hin the right lower lobe involving the posterior lateral basal se gments secondary to a small right pleural effusion. There is a focal region of heterogeneous low attenuation within the subpleural region s of the lateral basilar segments (#134). No pleural abnormalitie s are present on the left. The visualized portions of the upper abd omen are normal. There is mild heterogeneous appearance o f the medullary cavity with involving the anterior aspect of the rig ht fourth rib (#90), felt to be benign. The bones are otherwise unrem arkable for age. Impression: 1. Although there is a simple appearance of a small right pleural fluid collection, there is a focal regio n of heterogeneous attenuation involving a subpleural regio n of atelectasis within the right lower lobe suggestive of pneumonia and an associated parapneumonic effusion. In a patient wit h smoking history, it would be reasonable to obtain followup PA and lateral radiographs to confirm resolution of these findings. 2. Scattered 2-3 mm nodules within the l ungs are felt to be inflammatory and/or subpleural/intrapare nchymal lymph nodes. 3. Mild emphysema. Performing Organization Address City/State/ZIP Code Phon e Number [facility] (ABNORMAL) COMPREHENSIVE METABOLIC PANEL (CMP) (05/27/2014 20:22 EDT) Pathologist Sig nature Potassium 3.7 3.5 - 5.0 mEq/L [facility] Sodium 137 136 - 145 mEq/L [facility] Chloride 99 96 - 110 mEq/L [facility] CO2 29 24 - 32 mEq/L [facility] Total Alkaline 90 38 - 126 U/L [facility] Phosphatase [facility] Bilirubin, Total 0.6 <1.4 mg/dl [facility] AST 20 15 - 46 U/L [facility] ALT 25 21 - 72 U/L [facility] Albumin 3.7 3.4 - 4.9 g/dl [facility] Total Protein 6.7 6.5 - 8.3 g/dl [facility] Creatinine 1.12 0.66 - 1.25 [facility] mg/dl [facility] GFR, Calculated >60 >60 [facility] ml/min/1.73m2 [facility] BUN 12 10 - 26 mg/dl [facility] Calcium 9.4 8.5 - 10.5 [facility] mg/dl [facility] Calculated Calcium 10.1 8.5 - 10.5 [facility] mg/dl [facility] Glucose, Serum 122 (H) 70 - 100 mg/dl [facility] [facility] Fasting? Unknown [facility] Specimen Blood specimen (specimen) - Blood Performing Organization Address City/State/ZIP Code Phon e Number [facility] [address] [place] [address] SERVICES (ABNORMAL) HEMAGRAM AND DIFFERENTIAL (05/27/2014 20:22 EDT) Pathologist Sig nature WBC 12.42 (H) 4.0 - 10.4 K/cmm [facility] RBC 4.74 4.36 - 5.78 [facility] M/critical access hospital LABORATORY SERVICES Hemoglobin 13.1 (L) 13.8 - 17.3 [facility] gm/dl LABORATORY SERVICES HCT 38.4 (L) 39.5 - 50.2 % [facility] MCV 81 81 - 95 fl [facility] MCH 27.5 (L) 27.6 - 33.0 pg [facility] MCHC 34.0 32.8 - 36.4 [facility] gm/dl LABORATORY SERVICES RDW-CV 13.9 11.8 - 14.1 % [facility] SERVICES RDW-SD 39.4 36.5 - 45.9 fl [facility] LABOR[facility] SERVICES PLT 358 (H) 141 - 320 [facility] MPV 7.7 7.5 - 11.2 fl [facility] SERVICES Neutrophils 52.0 45.5 - 79.7 % [facility] Lymphocytes 26.0 15.0 - 46.8 % [facility] Monocytes 14.0 (H) 1.8 - 12.0 % [facility] Eosinophils 7.0 (H) 0.6 - 6.9 % [facility] Basophils 1.0 0.2 - 1.4 % [facility] ABS Neutrophils 6.46 2.20 - 8.85 [facility] K/critical access hospital LABORATORY SERVICES ABS Lymphs 3.23 1.09 - 3.30 [facility]/critical access hospital LABORATORY SERVICES ABS Monocytes 1.74 (H) 0.1 - 0.8 /[facility] LABORATORY SERVICES ABS Eosinophils 0.87 (H) 0.03 - 0.61 [facility] LABORATORY SERVICES ABS Basophils 0.12 (H) 0.01 - 0.11 [facility] K/critical access hospital LABORATORY SERVICES Large Platelets Present [facility] Type of Diff: Manual [facility] Specimen Blood specimen (specimen) - Blood Performing Organization Address City/State/ZIP Code Phon e Number [facility] [address] [place] [address] SERVICES (ABNORMAL) C-REACTIVE PROTEIN (05/27/2014 20:22 EDT) Pathologist Sig nature C-Reactive Protein 2.2 (H) <1.0 mg/dl [facility] SERVICES Specimen Blood specimen (specimen) - Blood Performing Organization Address City/State/ZIP Code Phon e Number [facility] [address] [place] [address] SERVICES CHEST PA AND LATERAL (05/27/2014 20:06 EDT) Anatomical Region Laterality Modality Other Specimen Narrative [facility] - 05/27/2014 20:22 EDT CHEST PA AND LATERAL ??05/27/2014 8:06 PM Signs and Symptoms/Comments: ??PNA Comparison: May 23, 2014 and outside s tudy Findings: PA and lateral views of the est. Heart size is normal. Pulmonary vasculature is normal. The lef t lung is clear. There is costophrenic angle blunting and increase d opacity in the right lung base compatible with effusion and probab le associated airspace disease. The lungs are otherwise clear. Bones and soft tissues are age-appropriate. Impression: Continued increased opacity and costophrenic angle blunting in the right lung base which is similar to the previous study, compatible with effusion and airs pace disease. Portions of this document may have been prepared with speech recognition software or keyboard data en try techniques. Minor irregularities or keyboarding misprints may be present. Procedure Note Petty Salazar MD - 05/27/2014 CHEST PA AND LATERAL 05/27/2014 8:06 PM Signs and Symptoms/Comments: PNA Comparison: May 23, 2014 and outside s tudy Findings: PA and lateral views of the est. Heart size is normal. Pulmonary vasculature is normal. The lef t lung is clear. There is costophrenic angle blunting and increase d opacity in the right lung base compatible with effusion and probab le associated airspace disease. The lungs are otherwise clear. Bones and soft tissues are age-appropriate. Impression: Continued increased opacity and costophrenic angle blunting in the right lung base which is similar to the previous study, compatible with effusion and airs pace disease. Portions of this document may have been prepared with speech recognition software or keyboard data en try techniques. Minor irregularities or keyboarding misprints may be present. Performing Organization Address City/State/ZIP Code Phon e Number [facility] [place] documented in this encounter Visit Diagnoses Diagnosis Pleural effusion - Primary Unspecified pleural effusion Pneumonia Pneumonia, organism unspecified documented in this encounter Orders Nursing Count Last Ordered Date First Ordered Date INSERT PERIPHERAL IV 1 05/27/2014 documented in this encounter Care Teams Stoneworking Sander Relationship Specialty Start Date End Date Larry Kaufman MD PCP - General 04/01/14 [address] [place] [address] documented as of this encounter
--- OUTSIDE RECORDS SUMMARY | 2021-06-18 20:51 | XMS_ITS | Encounter Summary ---
:1975 Author Organization [facility] Address [address] [place] [address] Care Team Providers Name Role Phone Alberto Kaufman MD Primary Care Provider Reason for Visit Reason Comments Follow-up Encounter Details Date Type Department Care Team Description 07/24/2014 Office Visit [facility] Paxton Kwon MD Pneumonia, organism unspecified (Primary Dx); Pulmonology & [address] [place] [address] Unspecified pleural effusion Critical Care - [place], [place] [address] [place] [address] [address] [facility] [place] [address] Social History Tobacco Use Types Packs/Day Years [...] Body Mass Index 48.77 07/24/2014 1159 EDT documented in this encounter Discharge Diagnoses Diagnosis 486. PNEUMONIA, ORGANISM NOS[ICD-9-CM] documented in this encounter Patient Instructions Patient InstructionsVladislav Kwon MD - 07/24/2014 11:54 EDT 1. Call us if you continue to have shoulder pain 3-4 weeks after last antibiotic use. documented in this encounter Progress Notes Vladislav Kwon MD - 07/24/2014 1144 EDT 07/24/2014 FOLLOW-UP PATIENT: Kike Akbar CHIEF COMPLAINT No chief complaint on file. HISTORY OF PRESENT ILLNESS Kike Akbar is a very pleasant 38 y.o. male, PMHx significant for obesity, who presented with acute right pleuritic chest pain, secondary to recent RLL w/ para-pneumonic effusion who presents for follow up pneumonia with para-pneumonic effusion. HPI Pt reports significant interval improvement in his presenting symptoms with resolution of the productive cough and significant improvement in right posterior shoulder blade. He says that he feels a slight residual shoulder pain 2/10 on and off. NO other symptoms in terms of dyspnea or productive cough. He's back coaching little league baseball and doing all usual activities without limitations. Pt just finished the course of empirical antibiotics few days ago. No fever, chills or sweating. MEDICAL HISTORY SURGICAL HISTORY Patient has no past surgical history on file. FAMILY HISTORY Patient's family history includes Cardiac Disease in his brother; Heart Attack in his father. SOCIAL HISTORY Patient reports that he has been smoking. He does not have any smokeless tobacco history on file. MEDICATIONS Patient currently has no medications in their medication list. ALLERGIES Patient is allergic to penicillins. REVIEW OF SYSTEMS Constitutional: Negative for fever, fatigue and unexpected weight change. HENT: Negative for congestion and sinus pressure. Eyes: Negative. Respiratory: Negative for apnea, cough, chest tightness, shortness of breath and wheezing. Cardiovascular: Negative for chest pain, palpitations and leg swelling. Gastrointestinal: Positive for vomiting. Negative for abdominal distention. Endocrine: Negative for polydipsia, polyphagia and polyuria. Genitourinary: Negative for frequency. Musculoskeletal: Negative for arthralgias and neck stiffness. Allergic/Immunologic: Negative for environmental allergies, food allergies and immunocompromised state. Neurological: Negative for dizziness, weakness and headaches. Hematological: Negative for adenopathy. Does not bruise/bleed easily. Psychiatric/Behavioral: Negative. VITALS Peter's vitals were not taken for this visit. PHYSICAL EXAM Constitutional: He is oriented to person, place, and time. Obese not in distress HENT: Head: Normocephalic. Mouth/Throat: No oropharyngeal exudate. 2+ enlarged tonsils bilaterally Neck: Neck supple. No JVD present. No tracheal deviation present. No thyromegaly present. Cardiovascular: Regular rhythm and normal heart sounds. No murmur heard. Pulmonary/Chest: No respiratory distress. He has no wheezes. Abdominal: Soft. Bowel sounds are normal. He exhibits no distension. Musculoskeletal: He exhibits no edema or tenderness. Neurological: He is alert and oriented to person, place, and time. He has normal reflexes. No cranial nerve deficit. Coordination normal. Skin: No erythema. Psychiatric: He has a normal mood and affect. DIAGNOSTIC DATA IMAGING: Follow up CXR today reviewed. Official report noted. Findings: The small right pleural effusion has decreased slightly since May, but not definitely since June. There is no left-sided pleural fluid. The lungs are clear. The cardiac silhouette and pulmonary vascularity are normal. The skeleton is unremarkable for age. ASSESSMENT 38-year-old gentleman, past medical history significant for tobacco use, right pneumonia with parapneumonic effusion diagnosed May 2014 status post empirical levofloxacin and azithromycin. Thoracentesis done revealing exudative effusion without isolated bacteria on cultures. He presents today for follow- up and repeat chest x-ray. 1. Pneumonia with parapneumonic effusion: Resolved. Interval clinical resolution of symptoms with minimal residual shoulder pain and mild slight haziness at the right base noted on the lateral view. We will continue to observe at this point and monitorfor further resolution of the residual shoulder pain. Patient reassured. The patient was instructed to call us back if the right shoulder pain does not resolve or in case ofrecurrence of prior symptoms in which case a repeat chest x-ray would be warranted. Otherwise we will follow as needed at this point. Vladislav Kwon MD documented in this encounter Plan of Treatment Not on filedocumented as of this encounter Visit Diagnoses Diagnosis Pneumonia, organism unspecified(486) - P rimary Pneumonia, organism unspecified Unspecified pleural effusion documented in this encounter Care Teams Mixer Attendant Relationship Specialty Start Date End Date Larry Kaufman MD PCP - General 04/01/14 [address] [place] [address] documented as of this encounter
--- OUTSIDE RECORDS SUMMARY | 2021-06-18 20:51 | XMS_ITS | Encounter Summary ---
:1975 Author Organization [facility] Address [address] [place] [address] Care Team Providers Name Role Phone Alberto Kaufman MD Primary Care Provider Encounter Details Date Type Department Care Team Description 09/16/2015 Orders Only [facility] Terence Beauchamp, [facility] [place] [address] [address] [facility] [phone] [place] [address] Social History Tobacco Use Types Packs/Day Years [...] Sig Dispensed Refills Start Date End Date apremilast (OTEZLA) 30 mg Take 1 Tab by mouth 2 180 Tab 1 09/16/2015 tablet times daily. Specialty Pharmacy documented in this encounter Plan of Treatment Not on filedocumented as of this encounter Visit Diagnoses Not on filedocumented in this encounter Care Teams Edge Bander Operator Relationship Specialty Start Date End Date Larry Kaufman MD PCP - General 04/01/14 [address] [place] [address] documented as of this encounter
--- OUTSIDE RECORDS SUMMARY | 2021-06-18 20:51 | XMS_ITS | Encounter Summary ---
:[address] [facility] Address [address] [place] [address] Care Team Providers Name Role Phone Alberto Kaufman MD Primary Care Provider Reason for Visit Reason Onset Date Comments Prior Auth, Medication 07/22/2015 Encounter Details Date Type Department Care Team Description 07/22/2015 Telephone [facility] Olivia Mckinley MD Prior Auth, Dermatology - Main [address] [place] [address] [address] [facility] [place] [address] Social History Tobacco Use Types Packs/Day Years [...] Notes Telephone Encounter - Sonya Lu - 08/03/2015 1049 EDT Prior Authorization Denial Medication: Otezla 28 day dose pack Denial Date: 07/31/15 Denial Reason: This office is unable to locate a contraindication to methotrexate due to BMI. The only psoriasis contraindication is: Patients with psoriasis who have preexisting blood dyscrasias (such as bone marrow hypoplasia, leukopenia, thrombocytopenia, or significant anemia), overt or laboratory evidence of immunodeficiency syndromes, and/or alcoholism, alcoholic liver disease, or other chronic liver disease. Please provide reference (copy). elephone Encounter - Latrice Nina - 08/01/2015 1328 EDT [place] Medicaid fax received DENIED for otezla tab This office is unable to locate a contraindication to methotrexate due to BMI. The only psoriasis contraindication is: Patients with psoriasis who have preexisting blood dyscrasias (such as bone marrow hypoplasia, leukopenia, thrombocytopenia, or significant anemia), overt or laboratory evidence of i mmunodeficiency syndromes, and/or alcoholism, alcoholic liver disease, or other chronic liver disease. Please provide reference (copy). elephone Encounter - Sonya Lu - 07/31/2015 1114 EDT Request for more information: Chart note from Dr. Mckinley regarding BMI was submitted 07/31/15 in response to request by Sonya Huitron Prior Authorization Submission Process Medication: Otezla 28 day dose pack Insurance: [place] Medicaid Date PA Request Received: 07/22/15 PA Submission Date: original PA was submitted 07/22/15 Submitted by: Sonya Huitron Phone: elephone Encounter - Latrice Nina - 07/23/2015 1256 EDT [place] Medicaid fax requesting more information. This office is unable to locate a contraindication to methotrexate due to BMI. The only Psoriasis contraindication is: Patients' with psoriasis who have preexisting blood dycrasias (such as bone marrow hypoplasia, leukopenia, thrombocytopenia, or significant anemia), overt or laboratory evidence of i mmunodeficiency syndromes, and/or alcoholism, alcoholic liver disease, or other chronic liver disease. Please provide referance (copy). Tracking#: [id number] signed by Latrice Nina at 07/23/2015 13:02 EDTTelephone Encounter - Latrice Nina - 07/23/2015 1253 EDT PA received. Tracking#: [id number] signed by Latrice Nina at 07/23/2015 12:54 EDTTelephone Encounter - Sonya Lu - 07/22/2015 1234 EDT Prescription Receipt by [facility] Date Received: 07-22-15 Received by: Sonya Huitron Medication: Otezla 28 day dose pack Benefits Investigation Results: [place] Medicaid Comments: [facility]: [phone] documented in this encounter Plan of Treatment Not on filedocumented as of this encounter Visit Diagnoses Not on filedocumented in this encounter Care Teams Lamination Inspector Relationship Specialty Start Date End Date Larry Kaufman MD PCP - General 04/01/14 [address] [place] [address] documented as of this encounter
--- OUTSIDE RECORDS SUMMARY | 2021-06-18 20:51 | XMS_ITS | Encounter Summary ---
:1975 Author Organization [facility] Address [address] [place] [address] Care Team Providers Name Role Phone Alberto Kaufman MD Primary Care Provider Encounter Details Date Type Department Care Team Description 05/28/2014 Hospital Encounter [facility] Amalia Espinosa, Cardiovascular Unit MD [address] [facility] [address] [place] [address] [place], [place] [phone] Social History Tobacco Use Types Packs/Day Years Used Date Light Tobacco Smoker 0.25 Sex Assigned at Date Recorded Not on file documented as of this encounter Last Filed Vital Signs Vital Sign Reading Time Taken Comments Blood Pressure - - Pulse - - Temperature - - Respiratory Rate - - Oxygen Saturation 98% 05/28/2014 1200 EDT Inhaled Oxygen Concentration - - Weight - - Height - - Body Mass Index - - documented in this encounter Discharge Diagnoses Diagnosis 511.9 PLEURAL EFFUSION NOS[ICD-9-CM] documented in this encounter Discharge Instructions Hong Mccracken RN - 05/28/2014 RADIOLOGY PATIENT EDUCATION INSTRUCTIONS 05/28/14 FOLLOWING A Thoracentesis Procedure Site - Right, mid back Physician Performing Procedure - Kj Alvarado PA-C ?? Return home and rest for the remainder of the day. You should have a responsible adult drive youhome and arrange for someone to remain with you for the rest of the day. ?? DO NOT drive or make any legal decisions today as the medications that were administered during the procedure for sedation and pain control may have effects that last several hours. Limit physical exertion to performing normal activities; avoid heavy lifting and strenuous exercise. You may resumenormal activities tomorrow. ?? You may resume your normal diet after the procedure, unless instructed otherwise by the physician. Avoid alcoholic beverages, depressant drugs, and smoking for 24 hours. If you have questions regarding the safety of reinstituting medications, please contact your primary care physician. ?? DO NOT take aspirin-containing medications, ibuprofen, vitamin E, or blood thinning medication (i.e., coumadin) for 24 hours after the procedure. You may take Tylenol (acetaminophen) 1-2 tablets every 4-6 hours after the procedure for mild discomfort. Call your primary care physician or the radiology department for pain unrelieved by Tylenol. ?? Following a Lung Biopsy, it is not uncommon to cough up blood either during or up to 2 days after. ?? Call your primary care physician or go to the nearest emergency room if you develop any of the following - ?? A rapid pulse ?? Saturation of the dressing at the skin site ?? Sudden onset of anxiety ?? Severe upper back or chest pain ?? Severe shortness of breath ?? If you cough up blood equal to or more than a table spoon ?? Check the dressing or band-aid throughout the day for any increase in drainage. Keep the dressing dry for 24 hours and then remove it. If you notice excessive bleeding from the skin apply pressureto the site and seek medical attention. ?? Call your physician for a follow-up appointment. The results of the procedure will be sent to the referring MD and it usually takes 3-4 days. ?? IF YOU HAVE ANY QUESTIONS OR CONCERNS REGARDING THE PROCEDURE, PLEASE CALL THE INTERVENTIONAL RADIOLOGY CLINIC AT . SOMEONE IS AVAILABLE TO TAKE YOUR CALL 24 HOURS A DAY. ? documented in this encounter Discharge Disposition Disposition Code Departure Means Destination Home or Self Care documented in this encounter Progress Notes Honey Schwartz - 05/29/2014 0937 EDT Called Erica Quintero pt's PCP and patient today to discuss exudative fluid results. Discussed with each individually that given the exudative nature of fluid, LDH 1559, protein 4.5, Nucleated cells 8250, RBCs 58279 and gram stain currently with polys no bacteria. Patient denies sob or fevers. Reports he has pain at site of thoracentesis and has pain on deep inspiration. Did speak with IR and fluid thought to be free flowing during procedure and was serosanguinous. Mr. Akbar, Erica Quintero both in agreement that he should get CXR done tomorrow to assess for reaccumulation of fluid. Left plan for PCP office to set up CXR. Dr. Audie Espinosa will follow up tomorrow. Honey Schwartz DO PGY2 0879 Hnog Bishop RN - 05/28/2014 1102 EDT Patient arrived to IR 26. ID'd by name and , reviewed allergies and current medications. Situation: Patient came to E.D with pain in right chest with S.o.A. Treated and released last night and referred to I.R. For thoracentesis Background: smoking hx Assessment: Patient c/o pain in right side of chest and short of air. Recommendation : Right Thoracentesis, Diagnostic with Reflex to Therapeutic 700ml taken off, patient tolerated well, d/c to home with instructions post procedure. documented in this encounter Procedure Notes Jose Alvarado PA-C - 05/28/2014 1207 EDT IR Procedure Note Procedure: U/S guided RIGHT thoracentesis Date Performed: 05/28/2014 Radiologist/Property Handler(s): MD Sorin/BLAKE Alvarado Sedation/Anesthesia: local Time Out: A time-out was completed prior to procedure verifying correct patient, procedure, site, positioning, and special equipment if applicable. Estimated Blood Loss: Unless otherwise noted, there was no blood loss, specimens removed, cultures obtained, or drains retained. Specimens: Pleural fluid Fluoroscopy Time: 0 Contrast Volume: none Complications: none Condition: Stable Post Procedure Diagnosis: Right pleural effusion Findings: 700 cc serosanguinous pleural fluid Recommendations: F/u fluid labs JUANA Schulz 05/28/2014 12:07 documented in this encounter Plan of Treatment Not on filedocumented as of this encounter Procedures Procedure Name Priority Date/Time Associated Diagnosis Comme nts INPATIENT ADD-ON STAT 05/28/2014 13:05 Results for this EDT procedure are i n the results section. FLUID DIFFERENTIAL Routine 05/28/2014 12:32 Resul ts for this EDT procedure are i n the results section. FLUID CELL COUNT Routine 05/28/2014 12:32 Results for this EDT procedure are i n the results section. documented in this encounter Results INPATIENT ADD-ON (05/28/2014 13:05 EDT) Tests to be added CELL COUNT WITH [facility] DIFF AND GRAM LABORATORY SERVICES STAIN TO THE PLEURAL FLUID TAKEN TODAY Number for problems PAS [facility] SERVICES Accession number [id number] [facility] LABORATORY SERVICES Specimen Other Performing Organization Address City/[facility]/ZIP Code Phon e Number [facility] [address] [place] [address] SERVICES FLUID DIFFERENTIAL (05/28/2014 12:32 EDT) Neutrophils, Fluid 4 % [facility] SERVICES Lymphocytes, Fluid 8 % [facility] SERVICES Glasscock/Macro, Fluid 22 % [facility] SERVICES Eosinophil, Fluid 52 % [facility] SERVICES Basophils, Fluid 0 % [facility] SERVICES Mesothelial 14 % [facility] LAB[facility] SERVICES Fluid Comment Basophil seen on [facility] scan.Comment: Rev'd LABORATORY by Pathologist SERVICES Specimen Pleural Fluid Performing Organization Address City/[facility]/ZIP Code Phon e Number [facility] [address] [place] [address] SERVICES FLUID CELL COUNT (05/28/2014 12:32 EDT) Pathologist Sig nature RBC, Fluid 39,400 /cmm [facility] LABORATOR Y SERVICES Nucleated Cells 8,250 /cmm [facility] LABORA TORY SERVICES Fluid Comment BLOODY [facility] LABORATO RY SERVICES Specimen Pleural Fluid Performing Organization Address City/[facility]/ZIP Code Phon e Number [facility] [address] [place] [address] SERVICES documented in this encounter Visit Diagnoses Not on filedocumented in this encounter Care Teams Fixer Boarding Room Relationship Specialty Start Date End Date Larry Kaufman MD PCP - General 04/01/14 [address] [place] [address] documented as of this encounter
--- OUTSIDE RECORDS SUMMARY | 2021-06-18 20:51 | XMS_ITS | Encounter Summary ---
:1975 Author Organization [facility] Address [address] [place] [address] Care Team Providers Name Role Phone Alberto Kaufman MD Primary Care Provider Reason for Visit Reason Onset Date Comments Other 03/26/2015 Encounter Details Date Type Department Care Team Description 03/26/2015 Telephone [facility] Taras Richey ph, MD Other Dermatology - [address] [address] [address], [place], [place] [address] (Wo rk) Social History Tobacco Use Types [...] this encounter Miscellaneous Notes Telephone Encounter - Vandana Adams - 03/26/2015 1005 EST Trying to contact the patient to set up payment and shipment for Humira. If we hear from the patient please give him the following contact information. Jacob - [employer] at [facility] documented in this encounter Plan of Treatment Not on filedocumented as of this encounter Visit Diagnoses Not on filedocumented in this encounter Care Teams Chair Inspector And Leveler Relationship Specialty Start Date End Date Larry Kaufman MD PCP - General 04/01/14 [address] [place] [address] documented as of this encounter
--- OUTSIDE RECORDS SUMMARY | 2021-06-18 20:51 | XMS_ITS | Encounter Summary ---
:1975 Author Organization [facility] Address [address] [place] [address] Care Team Providers Name Role Phone Alberto Kaufman MD Primary Care Provider Reason for Visit Reason Onset Date Comments Prior Auth, Medication 03/06/2015 Encounter Details Date Type Department Care Team Description 03/06/2015 Telephone [facility] Tej Roman MD Prior Auth, Medication Rheumatology & [address] [place] [address] Immunology - [facility] [address] [place] [address] [place], [place] [id number] Social History Tobacco Use Types Packs/Day Years [...] this encounter Miscellaneous Notes Telephone Encounter - Fang Hinson - 03/06/2015 1414 EST Prior Authorization Approval Medication: Humira 40mg/0.8mL pen Approved: Starting dose: 03/06/2015 - 04/06/2015, Maintenance dose: 03/06/2015 - 06/05/2015 Authorization Number: [id number] (starting dose, #06/10 days), [id number] (maintenance, #22/28 days) Pharmacy: [facility] Notes: Carolyn Nguyen to reorder to mail-order pharmacy Prior Authorization Submission Process Medication: Humira 40mg/0.8mL pen Insurance: [place] Submission Date: 03/06/2015 Submitted by: Fang Ryan Prescription Receipt by [facility] Date Received: 02/27/2015 Received by: Fang Ryan Medication: Humira 40mg/0.8mL pen Benefits Investigation Results: ANN enciso'd (in process), will be required to fill w/[facility] - Carolyn to reorder appropriately Comments: [facility]: [phone] documented in this encounter Plan of Treatment Not on filedocumented as of this encounter Visit Diagnoses Not on filedocumented in this encounter Care Teams Leather Lacer Relationship Specialty Start Date End Date Larry Kaufman MD PCP - General 04/01/14 [address] [place] [address] documented as of this encounter
--- OUTSIDE RECORDS SUMMARY | 2021-06-18 20:51 | XMS_ITS | Encounter Summary ---
:1975 Author Organization [facility] Address [address] [place] [address] Care Team Providers Name Role Phone Alberto Kaufman MD Primary Care Provider Reason for Visit Reason Onset Date Comments New Patient Visit 05/27/2014 Persistant Pulmonary infiltrate Encounter Details Date Type Department Care Team Description 05/27/2014 Telephone [facility] Larry Kaufman, Lauren w Patient Visit Pulmonology & Critical MD (Persistant Pulmonary Care - [address] infiltrate) [address] [place], [place] [address] [place] [id number] [phone] Social History Tobacco Use Types Packs/Day Years Used Date Light Tobacco Smoker 0.25 Sex Assigned at Date Recorded Not on file documented as of this encounter Miscellaneous Notes Telephone Encounter - Mayra Marques - 05/27/2014 0918 EDT Reason for Call: New Patient Visit Summary/Symptoms (Right or Left if applicable): MEGAN Patton states we were going to schedule an urgent NPV for Pt but he is feeling better so she wants to hold off for now. She will call if appt is necessary. Onset and Duration? Urgent? Mayra Marques 05/27/2014 9:18 documented in this encounter Plan of Treatment Not on filedocumented as of this encounter Visit Diagnoses Not on filedocumented in this encounter Care Teams Employee Communications Coordinator Relationship Specialty Start Date End Date Larry Kaufman MD PCP - General 04/01/14 [address] [place] [address] documented as of this encounter
--- OUTSIDE RECORDS SUMMARY | 2021-06-18 20:51 | XMS_ITS | Encounter Summary ---
:1975 Author Organization [facility] Address [address] [place] [address] Care Team Providers Name Role Phone Alberto Kaufman MD Primary Care Provider Encounter Details Date Type Department Care Team Description 05/30/2014 Results Only Imaging [facility] Chilo Vasquez, Pulmonology & Critical MD [facility] [address] [place] [address] [phone] Social History Tobacco Use Types Packs/Day Years Used Date Light Tobacco Smoker 0.25 Sex Assigned at Date Recorded Not on file documented as of this encounter Plan of Treatment Pending Results Name Type Priority Associated Diagnoses Date/Ti me OUTSIDE IMAGES - OTHER Imaging 05/30 13:48 EDT CHEST documented as of this encounter Visit Diagnoses Not on filedocumented in this encounter Care Teams Bull Gang Worker Relationship Specialty Start Date End Date Larry Kaufman MD PCP - General 04/01/14 [address] [place] [address] documented as of this encounter
--- OUTSIDE RECORDS SUMMARY | 2021-06-18 20:51 | XMS_ITS | Encounter Summary ---
:1975 Author Organization [facility] Address [address] [place] [address] Care Team Providers Name Role Phone Alberto Kaufman MD Primary Care Provider Reason for Visit Reason Onset Date Comments Medications Refill 09/11/2015 Encounter Details Date Type Department Care Team Description 09/11/2015 Telephone [facility] Olivia Mckinley MD Medications Refill Dermatology - Main [address] [place] [address] [address] [facility] [place] [address] Social History Tobacco Use Types Packs/Day Years [...] Sig Dispensed Refills Start Date End Date ketoconazole (NIZORAL) 2 Apply topically to 1 Bottle 11 % shampooIndications: affected area, leave Seborrheic dermatitis on 3-5 minutes then rinse off clobetasol (TEMOVATE) Apply 60 g topically 45 g 5 08/14 0.05 % ointment to affected area 2 times daily. Apply topically twice a day to affected areas. Do not apply to face, armpit or groin. urea 39 % cream Apply topically to 226 g 3 09/11/2015 1 affected area daily for 90 days. Daily at night, with clobetasol documented in this encounter Miscellaneous Notes Telephone Encounter - Parviz Mckinley MD - 09/11/2015 2134 EDT After speaking with the patient over the phone and discussing the option of MTX again. While reviewing contraindications he revealed to me that he has about 15 or so drinks a week. Several weekends amonth he meets with friends to have 3, 4 or so beers in one sitting. Which is borderline binge drinking. Which is a contraindication to methotrexate by itself. Not to mention the risk of non alcohol fatty liver disease. 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 Plan: Refills of his clobetasol, urea, and ketoconazole shampoo for is hyperkeratotic palmoplantar psoriasis, and brad derm will be called in. I will start the process for another appeal based on this new above information. Parviz Mckinley MD 12:03 09/11/2015 documented in this encounter Plan of Treatment Not on filedocumented as of this encounter Visit Diagnoses Diagnosis Seborrheic dermatitis - Primary Seborrheic dermatitis, unspecified documented in this encounter Discontinued Medications Medication Sig Discontinue Reason Start Date End Date clobetasol (TEMOVATE) Apply topically 2 0 09/11/2015 0.05 % cream times daily ketoconazole (NIZORAL) 2 Apply topically to 10/15/2014 09/11/2015 % cream affected area daily For the forehead, temples, and face mupirocin (BACTROBAN) 2 Apply topically to 07/21/2015 09/11/2015 % ointment affected area 2 times daily. PREDNISONE ORAL Take by mouth 09/11/2015 triamcinolone (KENALOG) Apply topically to 10/15/2014 09/11/2015 0.1 % creamIndications: affected area 2 Eczema of both hands times daily FOR THE CHEST clobetasol (TEMOVATE) Apply 60 g topically Reorder 10/29/2014 09/11/2015 0.05 % ointment to affected area 2 times daily Apply topically twice a day to affected areas. Do not apply to face, armpit or groin. ketoconazole (NIZORAL) 2 Apply topically to Reorder 10/15/2014 09/11/2015 % shampooIndications: affected area, leave Seborrheic dermatitis on 3-5 minutes then rinse off urea (CARMOL) 20 % cream Daily at night, with Reorder 10/30/19 15 09/11/2015 clobetasol documented as of this encounter Care Teams Manager Baby Relationship Specialty Start Date End Date Larry Kaufman MD PCP - General 04/01/14 [address] [place] [address] documented as of this encounter
--- OUTSIDE RECORDS SUMMARY | 2021-06-18 20:51 | XMS_ITS | Encounter Summary ---
:1975 Author Organization [facility] Address [address] [place] [address] Care Team Providers Name Role Phone Alberto Kaufman MD Primary Care Provider Reason for Visit Reason Onset Date Comments Appointment Related 09/18/2015 Encounter Details Date Type Department Care Team Description 09/18/2015 Telephone [facility] Olivia Mckinley MD Appointment Related Dermatology - Main [address] [place] [address] [address] [facility] [place] [place] [address] Social History Tobacco Use Types Packs/Day Years [...] this encounter Miscellaneous Notes Telephone Encounter - Prudence Amador 09/29/2015 1143 EDT Letter sent, informing patient of new appointment. Prudence Amador 09/29/2015 11:43 elephone Encounter - Lucy Silvestre - 09/25/2015 0938 EDT Left second message for patient to call back to confirm appointment. Lucy Silvestre 9:38 09/25/2015 Client Delivery Manager, Dermatology elephone Encounter - Lucy Silvestre - 09/23/2015 1138 EDT Left message for patient to call back to confirm appointment. Lucy Silvestre 11:38 09/23/2015 Client Delivery Manager, Dermatology elephone Encounter - Prudence Amador - 09/18/2015 1421 EDT Left message for patient to call back. Dr Mckinley wants to see patient back in 3 months. Cancelled10/21/15 appointment and rescheduled patient on 12/02/15 at 2:20pm with Dr. Mckinley. Needs to confirm. Prudence Amador 09/18/2015 14:21 documented in this encounter Plan of Treatment Not on filedocumented as of this encounter Visit Diagnoses Not on filedocumented in this encounter Care Teams Associate Embalmer/Funeral Director Relationship Specialty Start Date End Date Larry Kaufman MD PCP - General 04/01/14 [address] [place] [address] documented as of this encounter
--- OUTSIDE RECORDS SUMMARY | 2021-06-18 20:51 | XMS_ITS | Encounter Summary ---
:1975 Author Organization [facility] Address [address] [place] [address] Care Team Providers Name Role Phone Alberto Kaufman MD Primary Care Provider Encounter Details Date Type Department Care Team Description 02/27/2015 Hospital Encounter [facility] Harpreet Murdock MD [address] [address] [place], [place] [address] (Wo rk) Social History Tobacco Use Types [...] making decisions? documented as of this encounter Discharge Diagnoses Diagnosis L40.9 Psoriasis, unspecified-L40.9[ICD-1 0-CM] L21.9 Seborrheic dermatitis, unspecified -L21.9[ICD-10-CM] documented in this encounter Medications at Time of Discharge Medication Sig Dispensed Refills Start Date End Date clobetasol (TEMOVATE) Apply topically 2 0 09/11/2015 0.05 % cream times daily clobetasol (TEMOVATE) Apply 60 g topically 45 g 5 10/1409/11/2015 0.05 % ointment to affected area 2 times daily Apply topically twice a day to affected areas. Do not apply to face, armpit or groin. ketoconazole (NIZORAL) 2 Apply topically to 30 g 11 03/201409/11/2015 % cream affected area daily For the forehead, temples, and face ketoconazole (NIZORAL) 2 Apply topically to 1 Bottle 11 03/201409/11/2015 % shampooIndications: affected area, leave Seborrheic dermatitis on 3-5 minutes then rinse off PREDNISONE ORAL Take by mouth 0 2015 triamcinolone (KENALOG) Apply topically to 80 g 3 03/201409/11/2015 0.1 % creamIndications: affected area 2 times Eczema of both hands daily FOR THE CHEST urea (CARMOL) 20 % cream Daily at night, with 40 g 11 0 10/29/2014 09/11/2015 clobetasol documented as of this encounter Discharge Disposition Disposition Code Departure Means Destination Home or Self Care documented in this encounter Plan of Treatment Not on filedocumented as of this encounter Visit Diagnoses Not on filedocumented in this encounter Care Teams Aerial Survey Technician Relationship Specialty Start Date End Date Larry Kaufman MD PCP - General 04/01/14 [address] [place] [address] documented as of this encounter
--- OUTSIDE RECORDS SUMMARY | 2021-06-18 20:51 | XMS_ITS | Encounter Summary ---
:1975 Author Organization [facility] Address [address] [place] [address] Care Team Providers Name Role Phone Alberto Kaufman MD Primary Care Provider Reason for Visit Reason Comments Follow-up Encounter Details Date Type Department Care Team Description 10/29/[address] [facility] Shannan Londono MD [address] [facility], [address] [place] [address] Psoriasis (Primary Dx); Dermatology - [facility] Parviz Mckinley MD [address] [place], [place] [phone] Seborrheic dermatitis [address] [id number] Social History Tobacco Use Types Packs/Day Years [...] as of this encounter Discharge Diagnoses Diagnosis 696.1 OTHER PSORIASIS[ICD-9-CM] 690.10 SEBORRHEIC DERMATITIS NOS[ICD-9-C M] documented in this encounter Patient Instructions Patient InstructionsParviz Mckinley MD - 10/29/2014 16:58 EDT Keep the same routine Add Urea cream at night (with the clobetasol) Before applying the night treatment- soak feet in water, then apply. documented in this encounter Ordered Prescriptions Prescription Sig Dispensed Refills Start Date End Date urea (CARMOL) 20 % cream Daily at night, with 40 g 11 0 10/29/2014 09/11/2015 clobetasol clobetasol (TEMOVATE) Apply 60 g topically 45 g 5 10/1409/11/2015 0.05 % ointment to affected area 2 times daily Apply topically twice a day to affected areas. Do not apply to face, armpit or groin. documented in this encounter Discharge Disposition Disposition Code Departure Means Destination Auto Discharge documented in this encounter Progress Notes Parviz Mckinley MD - 10/29/2014 1644 EDT Images from the original note were not included. Dermatology Outpatient Visit Note Resident Clinic Chief Complaint Patient presents with ??? Follow-up Dermatologic History: Palmoplantar psoriasis Pranay Derm- face, scalp, chest Last Dermatology office visit: 1 week prior SUBJECTIVE Mr. Akbar is a 38 y.o. male who presents for follow up for hand psoriasis and seborrheic dermatitis. After using the clobetasol twice daily, occlusion at night- his hands have completely cleared. His feet have improved but still itch significantly. His face and scalp have cleared completely with ketoconazole. The patient has no other concerns today on exam. See documentation in [facility] for medical, surgical, social and family history, and the review of systems which I reviewed at this visit. He has a current medication list which includes the following prescription(s): clobetasol, clobetasol, ketoconazole, ketoconazole, prednisone, and triamcinolone. He is allergic to penicillins. Objective Mr. Akbar is healthy male that is alert and oriented to person, place and time. He has Fitzpatricktype I skin. Cutaneous exam was performed today of the scalp, face, neck, upper extremities, hands, trunk, lower extremities, feet. The remainder of the skin examination was otherwise normal except for: 1. The hands, forehead, and scalp have cleared since last visit 2. On the plantar feet bilaterally are thick adherent white scales, most prominent on the heels. There is well demarcated erythematous scales on the dorsal and plantar surfaces. DEMETRIA prep is negative for fungal elements Today Last week Assessment: 1.Palmo-plantar psoriasis. Currently this does not look like PRP and the chest biopsy demonstrated more a psoriatic picture. His hands have resolve well with topicals and the feet are improving. 2.Seborrheic dermatitis - chest and scalp Plan: 1. Continue to use clobetasol 0.05% ointment on the feet twice daily -Soak feet for 15 minutes at night before application -Occlude feet with wraps of choice after application 2. Add Urea 20% cream at night to help with adherent scale 3. Continue ketoconazole 2% shampoo and cream for the face, scalp and chest as needed. -refills as below Follow up: 6 months or in the interim should problems arise. Med Orders Placed This Visit and Additions to the Medication List Medications ??? clobetasol (TEMOVATE) 0.05 % ointment Sig: Apply 60 g topically to affected area 2 times daily Apply topically twice a day to affected areas. Do not apply to face, armpit or groin. Dispense: 45 g Refill: 5 ??? urea (CARMOL) 20 % cream Sig: Daily at night, with clobetasol Dispense: 40 g Refill: 11 Parviz Mckinley MD 10/29/2014 16:44 Attestation Statement: I saw and examined the patient with the resident/fellow. I agree with thefindings and plan of care documented in the resident's/fellow's note. SHANNAN LONDONO MD 11/10/2014 8:54 painting technician Vandana Moss - 10/29/2014 1626 EDT Review of Systems Constitutional: Negative for fever, fatigue and unexpected weight change. HENT: Negative for mouth sores. Eyes: Negative for pain. Respiratory: Negative for cough and shortness of breath. Cardiovascular: Negative for chest pain and palpitations. Gastrointestinal: Negative for nausea, vomiting, abdominal pain, diarrhea, constipation and blood instool. Genitourinary: Negative for dysuria, frequency and hematuria. Musculoskeletal: Negative for myalgias, joint swelling, arthralgias and muscle stiffness in the morning. Skin: Positive for rash. Neurological: Negative for numbness and headaches. Endo/Heme/Allergies: Does not bruise/bleed easily. Psychiatric/Behavioral: Negative for sleep disturbance. The patient is not nervous/anxious. Vandana Adams 16:26 10/29/2014 documented in this encounter Plan of Treatment Not on filedocumented as of this encounter Visit Diagnoses Diagnosis Psoriasis - Primary Other psoriasis Seborrheic dermatitis Seborrheic dermatitis, unspecified documented in this encounter Discontinued Medications Medication Sig Discontinue Reason Start Date End Date clobetasol (TEMOVATE) Apply 60 g topically Reorder 10/15/2014 10/29/2014 0.05 % to affected area 2 ointmentIndications: times daily Apply Eczema of both hands topically twice a day to affected areas. Do not apply to face, armpit or groin. documented as of this encounter Care Teams Hide Buffer Relationship Specialty Start Date End Date Larry Kaufman MD PCP - General 04/01/14 [address] [place] [address] documented as of this encounter
--- OUTSIDE RECORDS SUMMARY | 2021-06-18 20:51 | XMS_ITS | Encounter Summary ---
:1975 Author Organization [facility] Address [address] [place] [address] Care Team Providers Name Role Phone Alberto Kaufman MD Primary Care Provider Reason for Visit Reason Onset Date Comments Other 02/26/2015 Encounter Details Date Type Department Care Team Description 02/26/2015 Telephone [facility] Olivia Mckinley MD Other Dermatology - [facility] [address] [facility] [address] [place], [place] [address] [place] [address] [phone] Social History Tobacco Use Types Packs/Day Years [...] Telephone Encounter - Parviz Mckinley MD - 02/26/2015 3405 EST Called the patient back. His palms and feet have been flaring despite doing twice daily clobetasol soak and smears with wet-wraps. They are becoming tender and bothersome. I will have him come in tomorrow afternoon for an ERD visit. He may require methotrexate, no history of alcoholism or liver disease. Again I am not 100% convinced this is clinically consistent with PRP. May be palmoplantar psoriasis/dermatitis with bad Pranay Derm. We may need to biopsy tomorrow. Parviz Mckinley MD 16:48 02/26/2015 documented in this encounter Plan of Treatment Not on filedocumented as of this encounter Visit Diagnoses Not on filedocumented in this encounter Care Teams Collator Relationship Specialty Start Date End Date Larry Kaufman MD PCP - General 04/01/14 [address] [place] [address] documented as of this encounter
--- OUTSIDE RECORDS SUMMARY | 2021-06-18 20:51 | XMS_ITS | Encounter Summary ---
:1975 Author Organization [facility] Address [address] [place] [address] Care Team Providers Name Role Phone Alberto Kaufman MD Primary Care Provider Encounter Details Date Type Department Care Team Description 02/27/2015 Results Only [facility] Taras Richey ph, Dermatology - [address], [address], [address] [place], [place] [id number] [place] [phone] (Wo rk) Social History Tobacco Use Types [...] Name Priority Date/Time Associated Diagnosis Comme nts BACTERIAL Routine 02/27/2015 17:30 Results for this CULTURE/SMEAR EST procedure are in the results section. documented in this encounter Results BACTERIAL CULTURE/SMEAR, OTHER (02/27/2015 17:30 EST) Gram Smear Result No polys seen [facility] Gram Smear Result Many [facility] Mixed gram positive and gram negative organisms LABORATORY SERVICES Result Few [facility] Usual skin ondina LABORATORY SERVICES Result Smear suggests [facility] minimal or no LABORATORY SERVICES inflammation. Specimen Other Performing Organization Address City/State/ZIP Code Phon e Number [facility] [address] [place] [address] SERVICES documented in this encounter Visit Diagnoses Not on filedocumented in this encounter Care Teams Correction Officer Head Relationship Specialty Start Date End Date Larry Kaufman MD PCP - General 04/01/14 [address] [place], [place] [address] documented as of this encounter
--- OUTSIDE RECORDS SUMMARY | 2021-06-18 20:51 | XMS_ITS | Encounter Summary ---
:1975 Author Organization [facility] Address [address] [place] [address] Care Team Providers Name Role Phone Alberto Kaufman MD Primary Care Provider Encounter Details Date Type Department Care Team Description 09/16/2015 Documentation Visit [facility] Carolyn Beauchamp , Dermatology - Main [facility] [address] [place], [place] [id number] [place] [address] [place] [address] Social History Tobacco Use Types Packs/Day Years [...] documented as of this encounter Progress Notes Carolyn Beauchamp [facility] - 09/16/2015 1223 EDT I spoke to the patient by phone today (09/16/15) regarding the initiation of apremilast (Otezla) therapy. I spent 10 minutes discussing apremilast with the patient. The patient's first apremilast prescription from the [facility] is scheduled for delivery tomorrow. The first delivery will include the National Psoriasis Foundation patient fact sheet about apremilast. Dosing, Administration, and Storage We discussed that apremilast is available as a 30mg tablet that is taken by mouth. We discussed the tablets should not be crushed, split, or chewed. We discussed the typical titration and maintenance dosing in psoriatic arthritis as: Day 1 Day 2 Day 3 Day 4 Day 5 Day 6 and beyond Morning 10mg 10mg 10mg 20mg 20mg 30mg Evening 10mg 20mg 20mg 30mg 30mg Medication Adherence I stressed the importance of medication adherence in maximizing the benefits of the medication for this patient. We discussed strategies for remembering to take the medication twice daily, such as taking his medication at breakfast and dinner. Adverse Effects Common Adverse Effects: We discussed it is common to experience diarrhea (7-9%), nausea (7-9%), and headaches (5-6%). We discussed these side effects occurred within the first 2 weeks of treatment during clinical trials and tended to go away over time without the need to discontinue therapy. Serious Adverse Effects: Depression: We discussed depression, including reports of suicidal thoughts or suicidal behaviors occurred in about 1% of patients during clinical trials. We discussed the importance of seeking care immediately if the patient has feelings of depression, mood changes, suicidal thoughts, or suicidal behavior. Weight Loss: We discussed up to 12% of patients have reported weight loss in clinical studies. Effectiveness We discussed that it may take 4-6 months before understanding the full benefit of the medication. All questions the patient had were answered to the best of my ability and the patient will follow-upwith the office if they have additional questions. Mr. Akbar verbalized understanding of all above information. Patient Education Topic: Otezla (apremilast) Initiation Method: Handout and Verbal Taught to: Patient Barriers: None Outcomes: independent documented in this encounter Plan of Treatment Not on filedocumented as of this encounter Visit Diagnoses Not on filedocumented in this encounter Care Teams Fine Arts Instructor Relationship Specialty Start Date End Date Larry Kaufman MD PCP - General 04/01/14 [address] [place] [address] documented as of this encounter
--- OUTSIDE RECORDS SUMMARY | 2021-06-18 20:51 | XMS_ITS | Encounter Summary ---
:1975 Author Organization [facility] Address [address] [place] [address] Care Team Providers Name Role Phone Alberto Kaufman MD Primary Care Provider Reason for Visit Reason Onset Date Comments Provider Referred 09/29/2014 Encounter Details Date Type Department Care Team Description 09/29/2014 Telephone [facility] Taras Richey ph, MD Provider Referred Dermatology - [address], [address], [address] [place], [place] [address] [place] [address] [phone] (Wo rk) Social History Tobacco Use Types Packs/Day Years Used Date Former Smoker Cigarettes 19 Quit: 05/15/19 15 Smokeless Tobacco: Never [...] this encounter Miscellaneous Notes Telephone Encounter - Norah Freed RN - 10/01/2014 9805 EDT Spoke to patient Scheduled for NPV 10/15/14 at 3;[address] Mckinley, WPMichelle Polanco at [facility] made aware of appointment date Appointment confirmation letter mailed to patient. 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 Mild outbreak every 3 months. Severe outbreak once yearly, usually in mid to late summer. Hands bubble, then peel, and become extremely itchy andhypertrophic. Current episode present x 10 days On Exam: Entire palm has hypertrophic thickened skin with some erythema, a lot of cracking and crust. His feet are effected less so. Prescribed: clobetasol and oral prednisone taper x 12 days. Left message for patient to call us back to speak with a triage nurse. Advised to call us back within 3 business days to avoid request being closed. NORAH FREED RN 09/30/2014 13:35 elephone Encounter - Emily Mulligan - 09/29/2014 1522 EDT Notes scanned Telephone Encounter - Christiane Gant - 09/29/2014 1420 EDT Patient has pityriasis rubra pilaris. Fax received. documented in this encounter Plan of Treatment Not on filedocumented as of this encounter Visit Diagnoses Not on filedocumented in this encounter Care Teams Auto Claim Representative Relationship Specialty Start Date End Date Larry Kaufman MD PCP - General 04/01/14 [address] [place] [address] documented as of this encounter
--- OUTSIDE RECORDS SUMMARY | 2021-06-18 20:51 | XMS_ITS | Encounter Summary ---
:1975 Author Organization [facility] Address [address] [place] [address] Care Team Providers Name Role Phone Alberto Kaufman MD Primary Care Provider Reason for Visit Reason Onset Date Comments Discuss Test Results 05/30/201405/27 [facility] Encounter Details Date Type Department Care Team Description 05/30/2014 Telephone [facility] Amalia Vasquez Dis cuss Test Results Pulmonology & Critical MD (05/27 [facility]) Care - [facility] [address] [place] [address] [phone] Social History Tobacco Use Types Packs/Day Years Used Date Light Tobacco Smoker 0.25 Sex Assigned at Date Recorded Not on file documented as of this encounter Miscellaneous Notes Telephone Encounter - Mary Hull RT - 06/03/2014 1401 EDT Message left on answering machine that Dr Vasquez would like him to have a follow up chest xray in 4weeks. Dr Vasquez spoke with his PCP, and he can have this at his local hospital. If they need a follow up with Dr Vasquez after chest xray, they should call and she will see him. elephone Encounter - Amalia Vasquez MD - 06/03/2014 1222 EDT Has anyone spoken with patient? He should have f/u CXR in ~ 4 weeks. PCP can follow and refer backhere as necessary or you can put into my clinic. Amalia Vasquez MD elephone Encounter - Holly Ng, RT - 05/30/2014 1827 EDT Spoke w/ pt who said his PCP has spoken w/ Dr Vasquez re this report and the plan is to wait and plan f/u at later date. Holly Ng,RRT elephone Encounter - Jeanne Sibley - 05/30/2014 1625 EDT Reason for Call: Discuss Test Results Summary/Symptoms: Pt called to follow up. States that his PCP office suggested pt contact Pulmonaryto review CT results. Pt is anxious for call back. Jeanne Sibley 05/30/2014 16:25 elephone Encounter - Shanae Clifford - 05/30/2014 1415 EDT Reason for Call: Discuss Test Results Summary/Symptoms: Pt calling to speak with a nurse. States he would like to know the results of 05/27imaging. States PCP may see more fluid on lung. Please call. Onset and Duration? n/a Shanae Clifford 05/30/2014 14:15 documented in this encounter Plan of Treatment Not on filedocumented as of this encounter Visit Diagnoses Not on filedocumented in this encounter Care Teams Fitness Club Manager Relationship Specialty Start Date End Date Larry Kaufman MD PCP - General 04/01/14 [address] [place] [address] documented as of this encounter
--- OUTSIDE RECORDS SUMMARY | 2021-06-18 20:51 | XMS_ITS | Encounter Summary ---
:1975 Author Organization [facility] Address [address] [place] [address] Care Team Providers Name Role Phone Alberto Kaufman MD Primary Care Provider Reason for Visit Reason Onset Date Comments Prior Auth, Medication 09/11/2015 Encounter Details Date Type Department Care Team Description 09/11/2015 Telephone [facility] Olivia Mckinely MD Prior Auth, Dermatology - Main [address] [place] [address] [address] [facility] [place] [address] Social History Tobacco Use Types Packs/Day Years [...] Notes Telephone Encounter - Sonya Lu - 09/16/2015 1236 EDT Spoke to patient, informed of Otezla approval, signed up for copay assistance coupon bringing copay down to $0, and explained how specialty pharmacy works. Transferred call to Carolyn to give more information about medication. elephone Encounter - Sonya Lu - 09/16/2015 0935 EDT Prior Authorization Approval Medication: Otezla Approved: 09/14/15-12/15/15 Certificate Number: [id number] Request Number: [id number] Benefits Information or Other Notes: [place] Pharmacy: [facility] elephone Encounter - Sonya Lu - 09/14/2015 1340 EDT [place] responded: Patient now has pharmacy coverage through [employer]. I will submit a new PA to [employer]. elephone Encounter - Prudence Becerra - 09/14/2015 1142 EDT Fax received from [place] Medicaid. The PA was denied as the patient has primary insurance via [employer] that became active on 08/14/2015. Please submit bill/PA to primary. elephone Encounter - Sonya Lu - 09/11/2015 1656 EDT Prior Authorization Submission Process Medication: Otezla Insurance: [place] Medicaid Date PA Request Received: 07/22/15 PA Submission Date: Submitted APPEAL 09/11/15 Submitted by: Sonya Huitron Phone: documented in this encounter Plan of Treatment Not on filedocumented as of this encounter Visit Diagnoses Not on filedocumented in this encounter Care Teams Specialty Sales Representative Relationship Specialty Start Date End Date Larry Kaufman MD PCP - General 04/01/14 [address] [place] [address] documented as of this encounter
--- OUTSIDE RECORDS SUMMARY | 2021-06-18 20:51 | XMS_ITS | Encounter Summary ---
:1975 Author Organization [facility] Address [address] [place] [address] Care Team Providers Name Role Phone Alberto Kaufman MD Primary Care Provider Encounter Details Date Type Department Care Team Description 07/13/2014 Results Only Imaging [facility] Emergency, RICHY Martinez MD [phone] Social History Tobacco Use Types Packs/Day Years Used Date Light Tobacco Smoker 0.25 Sex Assigned at Date Recorded Not on file documented as of this encounter Plan of Treatment Pending Results Name Type Priority Associated Diagnoses Date/Ti me OUTSIDE IMAGES - OTHER Imaging 07/13 20:41 EDT CHEST documented as of this encounter Visit Diagnoses Not on filedocumented in this encounter Care Teams Machine Adjuster Leader Relationship Specialty Start Date End Date Larry Kaufman MD PCP - General 04/01/14 [address] [place] [address] documented as of this encounter
--- OUTSIDE RECORDS SUMMARY | 2021-06-18 20:51 | XMS_ITS | Encounter Summary ---
:1975 Author Organization [facility] Address [address] [place] [address] Care Team Providers Name Role Phone Alberto Kaufman MD Primary Care Provider Reason for Visit Reason Comments Cardiac Testing Cardiology (Routine) - Specialty Report Received Specialty Diagnoses / Procedures Referred By Contact Refer red To Contact Diagnoses Hypertrophic cardiomyopathy (HCC-CMS) ([facility]) Vick Anderson MD Procedures ECHOCARDIOGRAM [address] [facility] [address] [place] [phone] Referral ID Status Reason Start Date Expiration Date Visits V isits Requested Authorized [id number] Specialty 04/02/2014 1 1 Report Received Encounter Details Date Type Department Care Team Description 04/16/2014 Procedure visit [facility] Vick Anderson MD [address] [phone] Cardiology - [facility] [address] [place] [phone] Social History Tobacco Use Types Packs/Day Years Used Date Light Tobacco Smoker 0.25 Sex Assigned at Date Recorded Not on file documented as of this encounter Discharge Diagnoses Diagnosis 425.18 OTHER HYPERTROPHIC CARDIOMYOPATHY [ICD-9-CM] documented in this encounter Plan of Treatment Not on filedocumented as of this encounter Visit Diagnoses Not on filedocumented in this encounter Care Teams Tie Cutter Relationship Specialty Start Date End Date Larry Kaufman MD PCP - General 04/01/14 [address] [place], [place] [id number] documented as of this encounter
--- OUTSIDE RECORDS SUMMARY | 2021-06-18 20:51 | XMS_ITS | Encounter Summary ---
:1975 Author Organization [facility] Address [address] [place] [address] Care Team Providers Name Role Phone Alberto Kaufman MD Primary Care Provider Reason for Visit Reason Comments Follow-up Psoriasis never started Humira due to friend having bad reaction to Humira, felt like it was a t elemarketer calling about medication Seborrheic Dermatitis using topicals Encounter Details Date Type Department Care Team Description 07/21/2015 Office Visit [facility] Taras Richey ph, MD [address] [facility], [address] [place] [id number] Psoriasis (Primary Dermatology - [facility] Parviz Mckinley MD [address] [place] [address] Dx) [place] Unknown, ProviderMD [address] [place], [place] [address] Social History Tobacco Use Types Packs/Day Years [...] Discharge Diagnoses Diagnosis L40.9 Psoriasis, unspecified-L40.9[ICD-1 0-CM] documented in this encounter Patient Instructions Patient InstructionsParviz Mckinley MD - 07/21/2015 16:21 EDT ?? Benadryl OTC 25mg nightly as needed for itch ?? Zyrtec 10mg daily for itchy Also- SARNA cream- ask the pharmacist- 1% menthol cream. Helps with itch. Do the soak and smear with clobetasol for your feet diligently. documented in this encounter Ordered Prescriptions Prescription Sig Dispensed Refills Start Date End Date mupirocin (BACTROBAN) 2 Apply topically to 15 g 3 08/201509/11/2015 % ointment affected area 2 times daily. apremilast (OTEZLA) 28 Day1 10mg AM. Day2 1 Pack 0 08/201509/16/2015 day dose 10mg AM + 10mg PM. packIndications: Day3 10mg AM + 20mg Psoriasis PM. Day4 20mg AM + 20mg PM. Day5 20mg AM +30mg PM. Day6 and after 30mg AM+PM documented in this encounter Discharge Disposition Disposition Code Departure Means Destination Auto Discharge documented in this encounter Progress Notes Parviz Mckinley MD - 07/21/2015 1600 EDT Images from the original note were not included. Dermatology Outpatient Visit Note Chief Complaint Patient presents with ??? Follow-up ??? Psoriasis never started Humira due to friend having bad reaction to Humira, felt like it was a mat maker calling about medication ??? Seborrheic Dermatitis using topicals Last Dermatology office visit: Feb 2015 SUBJECTIVE Mr. Akbar is a 39 y.o. male who presents for follow up for palmoplantar psoriasis. He did not start the Humira, he was afraid of side effects. He was doing well without any symptoms, andhis father passed 1 month ago. Since then he has flared mainly on his feet. He has been applying cl obetasol twice daily without much relief of the thick scale. He is having pain while walking, it isstarting to affect his ability to sleep. The patient has no other concerns today on exam. See documentation in [facility] for medical, surgical, social and family history, and the review of systems which I reviewed at this visit. He has a current medication list which includes the following prescription(s): clobetasol, clobetasol, ketoconazole, ketoconazole, prednisone, triamcinolone, and urea. He is allergic to penicillins. Objective Mr. Akbar is healthy male that is alert and oriented to person, place and time. He has Fitzpatricktype I skin. Cutaneous exam was performed today of the scalp, face, neck, upper extremities, hands, trunk, lower extremities, feet. The remainder of the skin examination was otherwise normal except for: 1. The plantar feet bilaterally there is thick keratoderma demarcated to the plantar surfaces. 2. Early thin scale on the palms. -No nail involvement. 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 Given the persistent nature of his lesions despite twice daily topical clobetasol ointment, alongwith his significant pain and it hindering his ability to sleep we will start the prior authorization for apremilast treatment. ?? He is not a candidate for MTX given his BMI and lives too far away for phototherapy. ?? No history of depression. Patient is otherwise healthy. ?? Continue clobetasol ointment 0.05% twice daily. Soak feet and hands for 20 minutes prior to applying. 2.For the pruritus ?? Benadryl OTC 25mg nightly as needed for itch ?? Zyrtec 10mg daily for itchy ?? Start sarna OTC lotion Follow up: 2 months or in the interim should problems arise. Med Orders Placed This Visit and Additions to the Medication List Medications ??? apremilast (OTEZLA) 28 day dose pack Sig: Day1 10mg AM. Day2 10mg AM + 10mg PM. Day3 10mg AM + 20mg PM. Day4 20mg AM + 20mg PM. Day5 20mg AM +30mg PM. Day6 and after 30mg AM+PM Dispense: 1 Pack Refill: 0 [facility] SEAN Mckinley MD 07/21/2015 16:00 Attestation Statement: I saw and examined the patient with the resident/fellow. I agree with the findings and plan of care documented in the resident's/fellow's note. Harpreet Richey MD ucy Silvestre - 07/21/2015 1549 EDT Review of Systems Constitutional: Negative for fever, fatigue and unexpected weight change. HENT: Negative for mouth sores. Eyes: Negative for pain. Respiratory: Negative for cough and shortness of breath. Cardiovascular: Negative for chest pain and palpitations. Gastrointestinal: Negative for nausea, vomiting, abdominal pain, diarrhea, constipation and blood instool. Genitourinary: Negative for dysuria, frequency and hematuria. Musculoskeletal: Positive for myalgias, arthralgias and muscle stiffness in the morning. Negative for joint swelling. Skin: Positive for rash. Neurological: Negative for numbness and headaches. Endo/Heme/Allergies: Does not bruise/bleed easily. Psychiatric/Behavioral: Positive for sleep disturbance. The patient is not nervous/anxious. Lucy Silvestre 15:49 07/21/2015 Agent Broker, Dermatology documented in this encounter Plan of Treatment Not on filedocumented as of this encounter Visit Diagnoses Diagnosis Psoriasis - Primary Other psoriasis documented in this encounter Discontinued Medications Medication Sig Discontinue Reason Start Date End Date adalimumab (HUMIRA PEN) Inject 1 Pen into the 03/10/19 16 07/21/2015 40 mg/0.8 mL pen kit skin every 14 days adalimumab (HUMIRA PEN) Inject 2 pens into 03/10/2015 07/21/2015 40 mg/0.8 mL pen kit skin Week 1. Inject 1 pen into skin Week 2. Inject 1 pen into skin every 2 weeks starting at Week 4. Loading Dose. documented as of this encounter Care Teams Associate Professor Of Counseling Relationship Specialty Start Date End Date Larry Kaufman MD PCP - General 04/01/14 [address] [place] [address] documented as of this encounter
--- OUTSIDE RECORDS SUMMARY | 2021-06-18 20:51 | XMS_ITS | Encounter Summary ---
:1975 Author Organization [facility] Address [address] [place] [address] Care Team Providers Name Role Phone Alberto Kaufman MD Primary Care Provider Reason for Visit Reason Onset Date Comments Other 09/18/2015 Encounter Details Date Type Department Care Team Description 09/18/2015 Telephone [facility] Olivia Mckinley MD Other Dermatology - [facility] [address] [facility] [address] [place], [place] [address] [place] [address] [phone] Social History Tobacco Use Types Packs/Day Years [...] Telephone Encounter - Parviz Mckinley MD - 09/18/2015 1326 EDT Called patient. Reviewed the adverse effects detailed in Carolyn Beauchamp's report. No history of depression. Advised on potential risk. I will follow up with him in 12 weeks. Parviz Mckinley MD 13:27 09/18/2015 documented in this encounter Plan of Treatment Not on filedocumented as of this encounter Visit Diagnoses Not on filedocumented in this encounter Care Teams Receiving Checker Relationship Specialty Start Date End Date Larry Kaufman MD PCP - General 04/01/14 [address] [place] [address] documented as of this encounter
--- OUTSIDE RECORDS SUMMARY | 2021-06-18 20:51 | XMS_ITS | Encounter Summary ---
:[address] [facility] Address [address] [place] [address] Care Team Providers Name Role Phone Alberto Kaufman MD Primary Care Provider Reason for Visit Reason Onset Date Comments Other 07/30/2015 Prior auth Encounter Details Date Type Department Care Team Description 07/30/2015 Orders Only [facility] Olivia Mckinley MD Dermatology - [facility] [address] [facility] [address] [place], [place] [address] [place] [address] [phone] Social History Tobacco Use Types Packs/Day Years [...] documented as of this encounter Progress Notes Parviz Mckinley MD - 07/30/2015 1225 EDT The patient is severely obese with a last documented weight of 380lbs in our chart. Obese patients are at risk for liver damage via non alcoholic fatty liver disease NAFLD. NAFLD increase risk for cirrosis and liver damage. Thus patients with severe obesity and NAFLD risk should not be put on methotrexate if possible. The patient has uncomfortable palmoplantar psoriasis which interferes with his walking and quality of life as per my last note, and treatment with apremilast is desired. I believe this would clear hispsoriasis up and help alleviate his associated pain. Please refer to below on NAFLD and obesity from the NDJ. Jorge Garduno. Nonalcoholic fatty liver disease. [place] Journal of Medicine 346.16 (2002): 8205-6226. Parviz Mckinley MD 12:28 07/30/2015 documented in this encounter Plan of Treatment Not on filedocumented as of this encounter Visit Diagnoses Not on filedocumented in this encounter Care Teams Portrait Photographer Relationship Specialty Start Date End Date Larry Kaufman MD PCP - General 04/01/14 [address] [place] [address] documented as of this encounter
--- OUTSIDE RECORDS SUMMARY | 2021-06-18 20:51 | XMS_ITS | Encounter Summary ---
:1975 Author Organization [facility] Address [address] [place] [address] Care Team Providers Name Role Phone Alberto Kaufman MD Primary Care Provider Reason for Visit Reason Onset Date Comments Results 04/16/2014 Encounter Details Date Type Department Care Team Description 04/16/2014 Telephone [facility] Vick Anderson MD Results Cardiology - [place] [address] [facility] [address] [place], [place] [address] [place] [address] [phone] (Wo rk) Social History Tobacco Use Types Packs/Day Years Used Date Light Tobacco Smoker 0.25 Sex Assigned at Date Recorded Not on file documented as of this encounter Miscellaneous Notes Telephone Encounter - Vick Anderson MD - 04/16/2014 1652 EST Discussed with the patient his normal echo. He does not have hypertrophic cardiomyopathy like his brother. Cardiology follow-up if needed. documented in this encounter Plan of Treatment Not on filedocumented as of this encounter Visit Diagnoses Not on filedocumented in this encounter Care Teams Stick Welder Relationship Specialty Start Date End Date Larry Kaufman MD PCP - General 04/01/14 [address] [place], [place] [address] documented as of this encounter
--- OUTSIDE RECORDS SUMMARY | 2021-06-18 20:51 | XMS_ITS | Encounter Summary ---
:1975 Author Organization [facility] Address [address] [place] [address] Care Team Providers Name Role Phone Alberto Kaufman MD Primary Care Provider Reason for Visit Reason Comments Follow-up Psoriasis Palmo-plantar psoriasis Encounter Details Date Type Department Care Team Description 02/27/2015 Office Visit [facility] Harpreet Richey Pso riasis (Primary Dx); Dermatology - Main Seborrheic dermatitis [address] [phone] [facility] Level 5 [place] [address] (Wo rk) Social History Tobacco Use [...] Refills Start Date End Date adalimumab (HUMIRA * SPECIALTY*Inject 2 6 Pen 3 016 03/10/2015 PEN PSORIASIS STARTER pens 1st week, followed PACK) 40 mg/0.8 mL by one pen 1 wk later, pen kit then 1 pen every 2 weeks doxycycline Take 1 Cap by mouth 2 20 Cap 0 02/27/2015 (VIBRAMYCIN) 100 mg times daily for 10 days capsule Take with food, may cause photosensitivity and stomach upset. documented in this encounter Progress Notes Tej Roman MD - 02/27/2015 1617 EST Dermatology Outpatient Visit Note Chief Complaint Patient presents with ??? Follow-up ??? Psoriasis Palmo-plantar psoriasis Dermatologic problem list: 1. 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 male who presents for palmoplantar dermatitis flair. It has been effectively controlled by clobetasol daily. 5 days ago both is hands and feet flared despite using the clobetasol daily with soaking beforehand. It doesn't seem to be worsening but is very uncomfortable. See documentation in [facility] for medical, surgical, social and family history, and review of systems, which I reviewed at this visit. Medications: He has a current medication list which includes the following prescription(s): clobetasol, clobetasol, ketoconazole, ketoconazole, prednisone, triamcinolone, and urea. Allergies: He is allergic to penicillins. OBJECTIVE Physical Exam: Mr. Akbar is a male in no acute distress. He is alert and oriented to person, place and time. He has Zapien type I skin. Cutaneous examination including the hair, scalp, face, eyelids, lips, neck, chest, back, abdomen, all four extremities, hands, feet, digits and nails was performed. The examination was normal with the addition of the following comments: - Palmar hands: yellow thick scaled plaques with fissuring - Feet: yellow thick plaques on the plantar surface and excoriated erythematous patches on the dorsal surface with a more macerated appearance around the 4th and 5th webspace - Sternum/chest: Numerous red folliculocentric papules - Temples, anterior hairline/forehead and malar cheeks: light greasy, scaly plaques - There were no lesions suspicious for malignancy. ASSESSMENT 1. 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 Seborrheic dermatitis, face and chest PLAN 1. His is having a significant flare despite aggressive and consistent topical therapy. Because he is refractory to topical and he is having a significant flair we recommend systemic therapy. Methotrexate would be a consideration but due to his BMI we thought Humira would be a more desirable option. He is comfortable giving himself injections with training. We ordered the appropriate work up (see below). Until approval of Humira he can continue to use his topical therapies and should use a moisturizer on his hands and feet as well. Because of the concern for infection we cultured his left 4th-5th web space and prescribed doxycycline. We counseled him that this medication will make him more sensitive to the sun and he should take it with food. 2. For his seborrheic dermatitis, he can continue the ketoconazole shampoo for his chest, face and scalp. Follow-up: Return in about 1 month (around 03/30/2015)., sooner as needed. Med Orders Placed This Visit and Additions to the Medication List Medications ??? doxycycline (VIBRAMYCIN) 100 mg capsule Sig: Take 1 Cap by mouth 2 times daily for 10 days Take with food, may cause photosensitivity and stomach upset. Dispense: 20 Cap Refill: 0 ??? adalimumab (HUMIRA PEN PSORIASIS STARTER PACK) 40 mg/0.8 mL pen kit Sig: * SPECIALTY*Inject 2 pens 1st week, followed by one pen 1 wk later, then 1 pen every 2 weeks Dispense: 6 Pen Refill: 3 Orders Placed This Encounter Procedures ??? Bacterial Culture/Smear, Tissue Standing Status: Future Number of Occurrences: Standing Expiration Date: 02/28/2016 Order Specific Question: Tissue Specimen Source: Answer: Left 4th-5th toe webspace ??? TB by QuantiFERON, B Standing Status: Future Number of Occurrences: 1 Standing Expiration Date: 02/28/2016 Scheduling Instructions: Quantiferon tests can be drawn Monday - Monday, 9-5. A Quantiferon Kit is required. For Outpatients - Please call Lab ufindadser Service [phone]) to schedule the date and time for thepatient. For Inpatients - Please page the Business Enterprise Officer assigned to your floor. Order Specific Question: This test requires special handling. Have you read the scheduling instuctions below? Answer: Yes ??? Hepatitis B Profile Standing Status: Future Number of Occurrences: 1 Standing Expiration Date: 02/27/2016 ??? Hepatitis C Antibody Standing Status: Future Number of Occurrences: 1 Standing Expiration Date: 02/27/2016 ? ? Hemagram & Differential Standing Status: Future Number of Occurrences: 1 Standing Expiration Date: 02/28/2016 ??? Comprehensive Metabolic Panel (CMP) Standing Status: Future Number of Occurrences: 1 Standing Expiration Date: 02/28/2016 Scheduling Instructions: Blood Test and Fasting How long do I have to fast for before a blood test? - If a fasting blood test is ordered, you should not have anything to eat or drink (except water) for at least eight hours. This usually involves an overnight fast. - You should continue to take any prescription medications, unless your physician directed you not to take them. - Smoking and exercise may affect your results as well, so you should refrain from these activities as much as possible during this time. If you have any concerns about refraining from food for this period of time, talk to your physician. Order Specific Question: The lab recommends a fasting sample. Should phlebotomy collect the sample if the patient is NOT fasting? Answer: Yes ??? HIV Antibody Standing Status: Future Number of Occurrences: 1 Standing Expiration Date: 02/27/2016 Tej Roman MD 02/27/2015 16:17 Attestation Statement: I saw and examined the patient with the resident/fellow. I agree with the findings and plan of care documented in the resident's/fellow's note. Favor psoriasis over PRP based on appearance and most recent bx suspecting that dx over PRP. His quality of life w/ the severe changes on the hands and feet is significantly impacted poorly. Harpreet Richey MD Lucy Mayberry - 02/27/2015 1556 EST Review of Systems Constitutional: Positive for fatigue. Negative for fever and unexpected weight change. HENT: Negative [...] The patient is not nervous/anxious. Lucy Silvestre 15:56 02/27/2015 [place], Dermatology documented in this encounter Plan of Treatment Not on filedocumented as of this encounter Results HIV 1/2 ANTIBODY (02/27/2015 16:48 EST) HIV 1/2 Antibody Negative [facility] Comment: CENTER LABORATORY If acute HIV-1 infection is suspected in a SERVICES high risk patient, submit plasma specimen for HIV-1 RNA quantification test. Reference Range: ??Negative Assayed utilizing [employer] chemiluminescent technology. Specimen Blood specimen (specimen) - Blood Performing Organization Address City/State/ZIP Code Phon e Number [facility] [address] [place] [address] SERVICES (ABNORMAL) COMPREHENSIVE METABOLIC PANEL (CMP) (02/27/2015 16:48 EST) Potassium 3.9 3.5 - 5.0 [facility] mEq/L [facility] SERVICES Sodium 141 136 - 145 [facility] mEq/L [facility] SERVICES Chloride 104 96 - 110 [facility] mEq/L [place] CO2 22 (L) 24 - 32 mEq/L [facility] SERVICES Total Alkaline 74 38 - 126 U/L [facility] Phosphatase [place] [facility] SERVICES Bilirubin, Total 0.7 <1.4 mg/dl [facility] SERVICES AST 24 15 - 46 U/L [facility] SERVICES ALT 35 21 - 72 U/L [facility] SERVICES Albumin 4.1 3.4 - 4.9 [facility] g/dl [place] Total Protein 7.2 6.3 - 8.2 [facility] g/dl [place] [facility] SERVICES Creatinine 1.01 0.66 - 1.25 [facility] mg/dl [place] [facility] SERVICES GFR, Calculated 93 >60 [facility] Comment: ml/min/1.73m2 [facility] eGFR calculated using CKD-EPI equation for SERVICES non Americans. Multiply eGFR by 1.16 for Americans. BUN 13 10 - 26 mg/dl [facility] SERVICES Calcium 9.7 8.5 - 10.5 [facility] mg/dl [place] [facility] SERVICES Calculated Calcium 10.0 8.5 - 10.5 [facility] mg/dl [place] [facility] SERVICES Glucose, Serum 96 70 - 100 [facility] mg/dl [place] [facility] SERVICES Fasting? Unknown [facility] SERVICES Specimen Blood specimen (specimen) - Blood Performing Organization Address City/State/ZIP Code Phon e Number [facility] [address] [place] [address] SERVICES (ABNORMAL) HEMAGRAM AND DIFFERENTIAL (02/27/2015 16:48 EST) WBC 11.27 (H) 4.0 - 10.4 [facility] K/cmm LABORATORY SERVICES RBC 5.60 4.36 - 5.78 [facility] M/cmm LABORATORY SERVICES Hemoglobin 15.4 13.8 - 17.3 [facility] gm/dl LABORATORY SERVICES HCT 45.8 39.5 - 50.2 % [facility] SERVICES MCV 82 81 - 95 fl [facility] SERVICES MCH 27.5 (L) 27.6 - 33.0 [facility] pg LABORATORY SERVICES MCHC 33.6 32.8 - 36.4 [facility] gm/dl LABORATORY SERVICES RDW-CV 13.1 11.8 - 14.1 % [facility] LABORATORY SERVICES RDW-SD 38.8 36.5 - 45.9 [facility] fl LABORATORY SERVICES PLT 236Comment: Note 141 - 377 [facility] new reference K/cmm LABORATORY range effective SERVICES 02/23/15 MPV 10.9Comment: Note 9.5 - 12.7 fl [facility] new reference LABORATORY range effective SERVICES 01/11/16 Neutrophils 59.3 % [facility] SERVICES Lymphocytes 23.9 % [facility] SERVICES Monocytes 10.6 % [facility] SERVICES Eosinophils 5.0 % [facility] SERVICES Basophils 0.9 % [facility] SERVICES Immature Grans 0.3 % [facility] SERVICES ABS Neutrophils 6.69 2.20 - 8.85 [facility] K/[facility] LABORATORY SERVICES ABS Lymphs 2.69 1.09 - 3.30 [facility] LABORATORY SERVICES ABS Monocytes 1.20 (H) 0.1 - 0.8 [facility] LABORATORY SERVICES ABS Eosinophils 0.56 0.03 - 0.61 [facility] LABORATORY SERVICES ABS Basophils 0.10 0.01 - 0.11 [facility] LABORATORY SERVICES ABS Immature Grans 0.03 0 - 0.06 [facility] LABORATORY SERVICES Type of Diff: Automated [facility] SERVICES Specimen Blood specimen (specimen) - Blood Performing Organization Address [facility]/ZIP [facility] Phon e Number [facility] [address] [place] [address] SERVICES HEPATITIS C ANTIBODY (02/27/2015 16:48 EST) Pathologist Sig nature Hepatitis C Ab NegativeComment: [facility] Reference Range: LABORATORY SERVICES Negative Specimen Blood specimen (specimen) - Blood Performing Organization Address [facility] Phon e Number [facility] [address] [place] [address] SERVICES HEPATITIS B PROFILE (02/27/2015 16:48 EST) Hepatitis B NegativeComment: [facility] Surface Ag Reference Range: LABORATORY Negative SERVICES Hepatitis B Negative [facility] Surface Ab Comment: LABORATORY SERVICES Reference Range: Unvaccinated: ??Negative Vaccinated: ??Positive HBs Antibody, <5.0 mIU/mL [facility] Quant Comment: LABORATORY Patient is presumed to not be immune to S ERVICES infection with HBV. Reference Range: Positive: >=12.0 mIU/mL Indeterminate: >=5.0 to <12.0 mIU/mL Negative: <5.0 mIU/mL Hep B Core Ab Negative [facility] Comment: LABORATORY Reference Range: ??Negative SERVICES Interpretation depends on clinical setting. Specimen Blood specimen (specimen) - Blood Performing Organization Address [facility]/State/ZIP Code Phon e Number [facility] [address] [place] [address] SERVICES documented in this encounter Visit Diagnoses Diagnosis Psoriasis - Primary Other psoriasis Seborrheic dermatitis Seborrheic dermatitis, unspecified documented in this encounter Orders Lab Orders Without Results Count Last Ordered Date Fir st Ordered Date TB BY QUANTIFERON, B 1 02/27/2015 documented in this encounter Care Teams Mining Support Worker Relationship Specialty Start Date End Date Larry Kaufman MD PCP - General 04/01/14 [address] [place] [address] documented as of this encounter
--- OUTSIDE RECORDS SUMMARY | 2021-06-18 20:51 | XMS_ITS | Encounter Summary ---
:1975 Author Organization [facility] Address [address] [place] [address] Care Team Providers Name Role Phone Alberto Kaufman MD Primary Care Provider Encounter Details Date Type Department Care Team Description 02/27/2015 Phlebotomy Only [facility] Process Control Programmer, Jessica cotton; - Main [place] [facility] Seborrheic dermatitis [address] [place] [address] Social History Tobacco Use Types Packs/Day Years [...] Procedure Name Priority Date/Time Associated Comments Diagnosis HEPATITIS C AB W Routine 02/27/2015 16:48 Psoriasis Results for this REFLEX TO HCV RNA BY EST Seborrheic procedu re are in PCR dermatitis the results section. HEPATITIS B PROFILE Routine 02/27/2015 16:48 Seborrheic Resu lts for this EST dermatitis procedure are in Psoriasis the results section. COMPLETE BLOOD COUNT Routine 02/27/2015 16:48 Psoriasis Results for this AND DIFFERENTIAL EST Seborrheic procedure a re in dermatitis the results section. HIV 1/2 ANTIGEN AND Routine 02/27/2015 16:48 Psoriasis Results for this ANTIBODY, 4TH EST Seborrheic procedure are in GENERATION dermatitis the results section. COMPREHENSIVE Routine 02/27/2015 16:48 Psoriasis Results for this METABOLIC PANEL (CMP) EST Seborrheic proced ure are in dermatitis the results section. documented in this encounter Results HIV 1/2 ANTIBODY (02/27/2015 16:48 EST) HIV 1/2 Antibody Negative [facility] Comment: [facility]ENTER LAB[facility]ORY If acute HIV-1 infection is suspected in a SERVICES high risk patient, submit plasma specimen for HIV-1 RNA quantification test. Reference Range: ??Negative Assayed utilizing [employer] chemiluminescent technology. Specimen Blood specimen (specimen) - Blood Performing Organization Address City/State/ZIP Code Phon e Number [facility] [address] [place] [address] SERVICES (ABNORMAL) COMPREHENSIVE METABOLIC PANEL (CMP) (02/27/2015 16:48 EST) Potassium 3.9 3.5 - 5.0 [facility] MEDICAL mEq/L [facility] SERVICES Sodium 141 136 - 145 [facility] MEDICAL mEq/L [facility] SERVICES Chloride 104 96 - 110 [facility] MEDICAL mEq/L [facility] SERVICES CO2 22 (L) 24 - 32 mEq/L [facility] SERVICES Total Alkaline 74 38 - 126 U/L [facility] Phosphatase [facility] SERVICES Bilirubin, Total 0.7 <1.4 mg/dl [facility] SERVICES AST 24 15 - 46 U/L [facility] SERVICES ALT 35 21 - 72 U/L [facility] SERVICES Albumin 4.1 3.4 - 4.9 [facility] MEDICAL g/dl [facility] SERVICES Total Protein 7.2 6.3 - 8.2 [facility] MEDICAL g/dl [facility] SERVICES Creatinine 1.01 0.66 - 1.25 [facility] MEDICAL mg/dl [facility] SERVICES GFR, Calculated 93 >60 [facility] Comment: ml/min/1.73m2 [facility] eGFR calculated using CKD-EPI equation for SERVICES non Americans. Multiply eGFR by 1.16 for Americans. BUN 13 10 - 26 mg/dl [facility] SERVICES Calcium 9.7 8.5 - 10.5 [facility] mg/dl [facility] SERVICES Calculated Calcium 10.0 8.5 - 10.5 [facility] mg/dl [facility] SERVICES Glucose, Serum 96 70 - 100 [facility] mg/dl [facility] SERVICES Fasting? Unknown [facility] SERVICES Specimen Blood specimen (specimen) - Blood Performing Organization Address City/State/ZIP Code Phon e Number [facility] [address] [place] [address] SERVICES (ABNORMAL) HEMAGRAM AND DIFFERENTIAL (02/27/2015 16:48 EST) WBC 11.27 (H) 4.0 - 10.4 [facility] K/[facility] LABORATORY SERVICES RBC 5.60 4.36 - 5.78 [facility] M/[facility] LABORATORY SERVICES Hemoglobin 15.4 13.8 - 17.3 [facility] gm/dl LABORATORY SERVICES HCT 45.8 39.5 - 50.2 % [facility] SERVICES MCV 82 81 - 95 fl [facility] SERVICES MCH 27.5 (L) 27.6 - 33.0 [facility] pg LABORATORY SERVICES MCHC 33.6 32.8 - 36.4 [facility] gm/dl LABORATORY SERVICES RDW-CV 13.1 11.8 - 14.1 % [facility] LABORATORY SERVICES RDW-SD 38.8 36.5 - 45.9 [facility] fl LABORATORY SERVICES PLT 236Comment: Note 141 - 377 [facility] new reference /[facility] LABORATORY range effective SERVICES 02/23/15 MPV 10.9Comment: Note 9.5 - 12.7 fl [facility] new reference LABORATORY range effective SERVICES 02/23/15 Neutrophils 59.3 % [facility] SERVICES Lymphocytes 23.9 % [facility] SERVICES Monocytes 10.6 % [facility] SERVICES Eosinophils 5.0 % [facility] SERVICES Basophils 0.9 % [facility] SERVICES Immature Grans 0.3 % [facility]OR[facility] SERVICES ABS Neutrophils 6.69 2.20 - 8.85 [facility] LABORATORY SERVICES ABS Lymphs 2.69 1.09 - 3.30 [facility] K/[facility] LABORATORY SERVICES ABS Monocytes 1.20 (H) 0.1 - 0.8 [facility] K/[facility] LABORATORY SERVICES ABS Eosinophils 0.56 0.03 - 0.61 [facility] K/[facility] LABORATORY SERVICES ABS Basophils 0.10 0.01 - 0.11 [facility] K/[facility] LABORATORY SERVICES ABS Immature Grans 0.03 0 - 0.[address] [facility] LABORATORY SERVICES Type of Diff: Automated [facility] SERVICES Specimen Blood specimen (specimen) - Blood Performing Organization Address [facility] Phon e Number [facility] [address] [place] [address] SERVICES HEPATITIS C ANTIBODY (02/27/2015 16:48 EST) Pathologist Sig nature Hepatitis C Ab NegativeComment: [facility] Reference Range: LABORATORY SERVICES Negative Specimen Blood specimen (specimen) - Blood Performing Organization Address [facility] Phon e Number [facility] [address] [place] [address] SERVICES HEPATITIS B PROFILE (02/27/2015 16:48 EST) Hepatitis B NegativeComment: [facility] Surface Ag Reference Range: LABORATORY Negative SERVICES Hepatitis B Negative [facility] Surface Ab Comment: LABORATORY SERVICES Reference Range: Unvaccinated: ??Negative Vaccinated: ??Positive HBs Antibody, <5.0 mIU/mL [facility] Quant Comment: LABORATORY Patient is presumed to not be immune to S ERVICES infection with HBV. Reference Range: Positive: >=12.0 mIU/mL Indeterminate: >=5.0 to <12.0 mIU/mL Negative: <5.0 mIU/mL Hep B Core Ab Negative [facility] Comment: LABORATORY Reference Range: ??Negative SERVICES Interpretation depends on clinical setting. Specimen Blood specimen (specimen) - Blood Performing Organization Address [facility] Phon e Number [facility] [address] [place] [address] SERVICES documented in this encounter Visit Diagnoses Diagnosis Psoriasis Other psoriasis Seborrheic dermatitis Seborrheic dermatitis, unspecified documented in this encounter Care Teams Automatic Casting Machine Operator Relationship Specialty Start Date End Date Larry Kaufman MD PCP - General 04/01/14 [address] [place] [address] documented as of this encounter
--- OUTSIDE RECORDS SUMMARY | 2021-06-18 20:51 | XMS_ITS | Encounter Summary ---
:[address] [facility] Address [address] [place] [address] Care Team Providers Name Role Phone Alberto Kaufman MD Primary Care Provider Reason for Visit Reason Onset Date Comments Medication Management 02/25/2015 Encounter Details Date Type Department Care Team Description 02/25/2015 Telephone [facility] Olivia Mckinely MD Medication Management Dermatology - Main [address] [place] [address] [address] [facility] [place] [address] Social History Tobacco Use Types Packs/Day Years [...] Telephone Encounter - Norah Freed RN - 02/26/2015 1639 EST Spoke to patient Per Dr mckinley schedule for ERD tomorrow afternoon. Scheduled for ERD 02/27/15 at 3;[address] Richey, EP3 NORAH FREED RN 02/26/2015 16:39 elephone Encounter - Norah Freed RN - 02/26/2015 1550 EST Patient last seen 10/29/[address] Parviz Mckinley for Palmo-plantar psoriasis Was prescribed: - clobetasol 0.05% ointment twice daily - Soak feet for 15 minutes at night before application - Occlude feet with wraps of choice after application - Urea 20% cream at night to help with adherent scale - Ketoconazole 2% shampoo and cream for the face, scalp and chest as needed. Spoke to patient States he called yesterday and hasn't received any response Has been using medications as prescribed. Is having a flare on hand and feet Skin is very dry, cracked, bleeding, painful Sores on hands and feet Draining clear liquid from soles of feet Shoes painful Painful to ambulate States it doesn't look infected States he devised a plan with Dr Mckinley - since he lives so far away from the hospital, Dr Mckinley would prescribe prednisone if he flared. [id number] - [place], [place] Advised that we typically do not prescribe prednisone for psoriatic flares. Will make Dr Mckinley aware and we will call him back. Discussed patient with Dr Mckinley. He will call patient directly - patient made aware. NORAH FREED RN 02/26/2015 16:06 elephone Encounter - Ayaka Gonzales - 02/25/2015 0839 EST Patient is experiencing a dermatitis flare up. Dr. Parviz Mckinley prescribed PREDNISONE ORAL if this happened again. Please call script into pharmacy and let the patient know when it is all set. documented in this encounter Plan of Treatment Not on filedocumented as of this encounter Visit Diagnoses Not on filedocumented in this encounter Care Teams Cake Maker Relationship Specialty Start Date End Date Larry Kaufman MD PCP - General 04/01/14 [address] [place] [address] documented as of this encounter
--- OUTSIDE RECORDS SUMMARY | 2021-06-18 20:51 | XMS_ITS | Encounter Summary ---
:1975 Author Organization [facility] Address [address] [place] [address] Care Team Providers Name Role Phone Alberto Kaufman MD Primary Care Provider Reason for Visit Reason Onset Date Comments Labs Only 03/02/2015 Encounter Details Date Type Department Care Team Description 03/02/2015 Telephone [facility] Taras Richey ph, MD Labs Only Dermatology - [address] [address] [address], [place], [place] [address] (Wo rk) Social History [...] this encounter Miscellaneous Notes Telephone Encounter - Lucy Silvestre - 03/05/2015 1120 EST has spoken to the patient and informed him of the labs error. Patient will return for TB testing at his earliest convenience. New order has been placed. Lucy Silvestre 11:22 03/05/2015 Bell Valet, Dermatology elephone Encounter - Guera Dailey - 03/04/2015 1513 EST Looked under the lab tab and it looks like there was a new order placed on 03/02/2015. Comments are: PATIENT HAD QFTBA COLLLECTED ON 02/27, THERE WAS A LAB ERROR THAT OCCURRED AND PATIENT NEEDS TO BE RECOLLECTED. FREE PHLEBOTOMY CHARGE ONLY. PATIENT TO CALL LAB TO SCHEDULE TESTING.PATIENT HAD QFTBA COLLLECTED ON 02/27, THERE WAS A LAB ERROR THAT OCCURRED AND PATIENT NEEDS TO BE RECOLLECTED. FREE PHLEBOTOMY CHARGE ONLY. PATIENT TO CALL LAB TO SCHEDULE TESTING. Guera Arriaga 03/04/2015 15:13 [place] elephone Encounter - Guera Dailey - 03/02/2015 1610 EST motorsports technician called stating that patient's quantiferon gold lab was not run in time so the results are not available. Stated that this was a lab error and asked that we reach out to the patient to inform him. The label coder said that they will put in a new order and that the patient would not be charged forthe new draw at any of the [facility] Phlebotomy labs. Guera Arriaga 03/02/2015 16:11 Bell Valet documented in this encounter Plan of Treatment Not on filedocumented as of this encounter Visit Diagnoses Not on filedocumented in this encounter Care Teams E Mail System Administrator Relationship Specialty Start Date End Date Larry Kaufman MD PCP - General 04/01/14 [address] [place] [address] documented as of this encounter
--- OUTSIDE RECORDS SUMMARY | 2021-06-18 20:51 | XMS_ITS | Encounter Summary ---
:1975 Author Organization [facility] Address [address] [place] [address] Care Team Providers Name Role Phone Alberto Kaufman MD Primary Care Provider Encounter Details Date Type Department Care Team Description 03/02/2015 Orders Only [facility] Harpreet Richey, Pso riasis, unspecified (Primary Dx); Dermatology - Jordy ANDERSON Seborrheic dermatitis [id number] [place] [address] [facility] [address] [place] [address] (Wo rk) Social History Tobacco [...] as of this encounter Visit Diagnoses Diagnosis Psoriasis, unspecified - Primary Seborrheic dermatitis Seborrheic dermatitis, unspecified documented in this encounter Care Teams Sourcing Associate Relationship Specialty Start Date End Date Larry Kaufman MD PCP - General 04/01/14 [address] [place] [address] documented as of this encounter
--- OUTSIDE RECORDS SUMMARY | 2021-06-18 20:51 | XMS_ITS | Encounter Summary ---
:1975 Author Organization [facility] Address [address] [place] [address] Care Team Providers Name Role Phone Alberto Kaufman MD Primary Care Provider Reason for Referral Cardiology (Routine) - Specialty Report Received Specialty Diagnoses / Procedures Referred By Contact Refer red To Contact Diagnoses Hypertrophic cardiomyopathy ([facility] ([facility]) Eyad Gonzalez MD Procedures ECHOCARDIOGRAM [address] [facility] [address] [place] [phone] Referral ID Status Reason Start Date Expiration Date Visits V isits Requested Authorized [id number] Specialty 04/02/2014 1 1 Report Received Reason for Visit Reason Comments Other Here today because of a fami ly hx of cardiomyopathy. Not having symptoms but is approaching 39. Encounter Details Date Type Department Care Team Description 04/02/2014 Office Visit [facility] Eyad Gonzalez, Hypert rophic Cardiology - Chaya ANDERSON cardiomyopathy ([facility]) [address] Chaya Benitez [address] [place] [address] (Primary Dx) [place], [place] [address] [place] [address] [place] [address] Social History Tobacco Use Types Packs/Day Years Used Date Light Tobacco Smoker 0.25 Sex Assigned at Date Recorded Not on file documented as of this encounter Last Filed Vital Signs Vital Sign Reading Time Taken Comments Blood Pressure 138/100 04/02/2014 1144 EST Pulse 78 04/02/2014 1144 EST Temperature - - Respiratory Rate - - Oxygen Saturation 97% 04/02/2014 1144 EST Inhaled Oxygen Concentration - - Weight 170.6 kg (376 lb) 04/02/2014 1144 EST Height 188 cm (6' 2) 04/02/2014 1144 EST Body Mass Index 48.28 04/02/2014 1144 EST documented in this encounter Discharge Diagnoses Diagnosis 425.18 OTHER HYPERTROPHIC CARDIOMYOPATHY [ICD-9-CM] documented in this encounter Progress Notes Eayd Gonzalez MD - 04/02/2014 1335 EST Subjective: Patient ID: Omer Akbar is an 38 y.o. male. Chief Complaint Patient presents with ??? Other Here today because of a family hx of cardiomyopathy. Not having symptoms but is approaching 39. Assessment: 1. Family history possible hypertrophic cardiomyopathy: The patient's brother is patient of [facility] and has hypertrophic cardiomyopathy. The patient is asymptomatic. His EKG shows only left anterior hemiblock but no evidence of LVH. It is reasonable to have the patient has a first-degree relative undergo echocardiography. This may be a technical challenge given the patient's size. I will be in touch with him about those results. If images are adequate and there is no evidence of hypertrophy thenno further evaluation is necessary. If the patient has equivocal findings he might need to be considered for MRI and if he has a true cardiomyopathy further risk stratification may be appropriate. 2. Obesity: Patient denies any symptoms to suggest sleep apnea. Going forward he is appropriate for usual primary prevention measures with his primary care team. HPI The patient is seen today at his request for evaluation of his family history of hypertrophic cardiomyopathy. His brother is a patient of mine who has been demonstrated to have a significant variant of this cardiomyopathy. The patient himself has never undergone previous evaluation and on a detailedreview of systems no significant findings are encountered. The patient is on no medications. Patient has been making rigorous efforts at weight loss and has lost about 60 pounds in the last year. He does not exercise vigorously but normal activities do not lead to any symptoms. He competed in high school sports without any problems. No family members other than his brother are known to have hypertrophic cardiomyopathy. His father has advanced CAD. Patient is on no medications. He is . His children are healthy. There is no problem list on file for this patient. History reviewed. No pertinent past medical history. History reviewed. No pertinent past surgical history. Family History Problem Relation Age of Onset ??? Heart Attack Father ??? Cardiac Disease Brother Social History Substance Use Topics ??? Smoking status: Light Tobacco Smoker -- 0.25 packs/day ??? Smokeless tobacco: Not on file ??? Alcohol Use: Not on file No current outpatient prescriptions on file prior to visit. No current facility-administered medications on file prior to visit. Allergies Allergen Reactions ??? Penicillins Anaphylaxis Closing of throat Review of Systems Constitutional: Negative. HENT: Negative. Respiratory: Negative. Cardiovascular: Negative. Genitourinary: Negative. Musculoskeletal: Negative. Neurological: Negative for focal weakness, seizures and loss of consciousness. Endo/Heme/Allergies: Negative. Psychiatric/Behavioral: Positive for substance abuse (Current limited tobacco. Very remote other drugs). - See HPI Objective: BP 138/100 Pulse 78 Ht 188 cm (74) Wt 170.552 kg (376 lb) BMI 48.25 kg/m2 SpO2 97% Physical Exam Constitutional: He appears well-nourished. No distress. HENT: Head: Normocephalic. Eyes: Conjunctivae are normal. No scleral icterus. Neck: No JVD present. Carotid bruit is not present. Cardiovascular: Normal rate, regular rhythm and normal heart sounds. Pulmonary/Chest: Effort normal and breath sounds normal. No respiratory distress. Abdominal: Soft. Musculoskeletal: He exhibits no edema. Skin: No pallor. Psychiatric: His behavior is normal. Assessment: Plan: (425.18) Hypertrophic cardiomyopathy (primary encounter diagnosis) Plan: EKG 12-LEAD, ECHOCARDIOGRAM Eyad Gonzalez MD No orders of the defined types were placed in this encounter. documented in this encounter Plan of Treatment Not on filedocumented as of this encounter Procedures Procedure Name Priority Date/Time Associated Diagnosis Comme nts ECHOCARDIOGRAM Routine 04/16/2014 11:29 Hypertrophic Results f or this EST cardiomyopathy procedure are in ([facility]) the results section. ECG REPORT - SCANNED 04/03/2014 10:45 EST EKG 12-LEAD Routine 04/02/2014 12:12 Hypertrophic Results for this EST cardiomyopathy procedure are in ([facility]) the results section. documented in this encounter Results ECHOCARDIOGRAM (04/16/2014 11:29 EST) Specimen Narrative OP CARDIOLOGY - 04/16/2014 12:42 EST *Interpreting Group:* *[facility]* [address] [place] [address] Date of study: 04/16/2014 *STUDY CONCLUSIONS* Impressions: ??There was no evidence of hypertrophic cardiomyopathy. Summary: 1. Left ventricle: The cavity size was n ormal. Wall thickness was normal. ?? Systolic function was at the lower l imits of normal. The estimated ejection ?? fraction was 50%. Wall motion was no rmal; there were no regional wall motion ?? abnormalities. 2. Right ventricle: The cavity size was normal. Wall thickness was normal. ?? Systolic function was normal. *PATIENT PRESENTATION* Height: ? 188cm (74in ) S/D Pressure: 139 / 82 Weight: ? 136.1kg (299.4lb ) BSA: ?2.72m^2 Test start time: ??11:00 AM. Test stop time: ??11:30 AM. ATTENDING ?Eyad Gonzalez MD ORDERING ? Eyad Gnozalez MD REFERRING ?Larry Kaufman REFERRING ?Eyad Gonzalez t PERFECT BIND MACHINE OPERATOR ??Sayra Johnson PERFORMING ?? [facility], [facility] *PROCEDURE DATA* Procedure information: ??This study was interpreted by [facility]. Pertinent imag es and digital data are archived for permanent storage and are available for subsequent review. ??Study status: Routine. Transthoracic echocardiography. ??M-mode, complete 2D, complete spectral Doppler, and color Doppler. A Transthora cic Echocardiogram was performed. Scanning was performed from the paraster nal, apical, subcostal, and suprasternal notch acoustic windows. Images were obta ined using a Stephy IE33 8 cardiac ultrasound machine. Image quality was ad equate. The study was technically limited due to body habitus. ??Study com pletion: ??The patient tolerated the procedure well. There were no complicati ons. *INDICATIONS AND HISTORY* Indications: ?? (425.18). *CARDIAC ANATOMY* Left ventricle: ??The cavity size was no rmal. Wall thickness was normal. Systolic function was at the lower limits of norm al. The estimated ejection fraction was 50%. Wall motion was normal; there were no regional wall motion abnormalities. Aortic valve: ?? Trileaflet; normal thic kness leaflets. Mobility was not restricted. ??Doppler: ??Transvalvular v elocity was within the normal range. There was no stenosis. ??No regurgitation. Aorta: ??Aortic root: The aortic root wa s normal in size. Mitral valve: ?? Structurally normal amilcar ve. ?? Mobility was not restricted. Doppler: ??Transvalvular velocity was wi thin the normal range. There was no evidence for stenosis. ??No regurgitatio n. Left atrium: ??The atrium was normal in size. Right ventricle: ??The cavity size was n ormal. Wall thickness was normal. Systolic function was normal. Pulmonic valve: ?Doppler: ??Transval vular velocity was within the normal range. There was no evidence for stenosis. ??No regurgitation. Tricuspid valve: ?? Structurally normal valve. ?Doppler: ??Transvalvular velocity was within the normal range. Th ere was no evidence for stenosis. ??No regurgitation. Pulmonary artery: ?Systolic pressure could not be accurately estimated. Right atrium: ??The atrium was normal in size. Pericardium: ??There was no pericardial effusion. Systemic veins: Inferior vena cava: Poorly visualized. *MEASUREMENT TABLES* 2D measurements ?Normal Left ventricle Area, ED, A4C ?28.1 cm^2 ?? 17.7-47.3 Area, ES, A4C ?17.6 cm^2 ?? 7.9-31.5 Fractional area change, A4C ?37 % ?--------- Area, ED, A2C ?27.7 cm^2 ?? --------- Area, ES, A2C ?20.2 cm^2 ?? 8.9-28.1 Fractional area change, A2C ? *27 % ?33.7-69 Volume, ED, MOD, 1-plane ? 82 ml ? --------- Volume, ES, MOD, 1-plane ? 40 ml ? --------- Ejection fraction, MOD, 1-plane ?51 % ?--------- Stroke volume, MOD, 1-plane ?42 ml ? --------- Volume index, ED, MOD, 1-plane ? 30 ml/m^2 --------- Volume index, ES, MOD, 1-plane ? 15 ml/m^2 --------- Stroke index, MOD, 1-plane ? 15.5 ml/m^2 --------- Volume, ED, MOD, 2-plane ? 82 ml ? 62-170 Volume, ES, MOD, 2-plane ? 46 ml ? --------- Stroke volume, MOD, 2-plane ?36 ml ? --------- Volume index, ED, MOD, 2-plane ? 30 ml/m^2 --------- Volume index, ES, MOD, 2-plane ? 17 ml/m^2 --------- Stroke index, MOD, 2-plane ? 13.3 ml/m^2 --------- Aorta Root diameter, ED ?36 mm ? --------- Ascending aorta anterior-posterior diame ter, S ?? 38 mm ? --------- Left atrium Anterior-posterior dimension ? 33 mm ? --------- Anterior-posterior dimension index ? 1.21 cm/m^2 <2.2 Superior-inferior dimension, A4C ? 33 mm ? 29-53 ?? Doppler measurements ? Normal Left ventricle Ea, lateral annulus, tissue Doppler ?6.47 cm/s ?? --------- E/Ea, lateral annulus, tissue Doppler ? 8.1 ?--------- Mitral valve Peak E-wave velocity ? 52.3 cm/s ?? --------- Peak A-wave velocity ? 57.8 cm/s ?? --------- Deceleration time ?*248 ms ? 150-230 Peak E/A ratio ?0.9 ?--------- Legend: Mean values are shown as u=mean value. Asterisk (*) cruz values outside specif ied normal range. I have personally reviewed the images an d have reviewed and edited the reported findings. Electronically signed by Heron Gale MD 04/16/2014 12:42 Procedure Note Heron Gale MD - 04/16/2014 *Interpreting Group:* *[facility]* [address] [place] [address] Date of study: 04/16/2014 *STUDY CONCLUSIONS* Impressions: There was no evidence of h ypertrophic cardiomyopathy. Summary: 1. Left ventricle: The cavity size was n ormal. Wall thickness was normal. Systolic function was at the lower li mits of normal. The estimated ejection fraction was 50%. Wall motion was nor mal; there were no regional wall motion abnormalities. 2. Right ventricle: The cavity size was normal. Wall thickness was normal. Systolic function was normal. *PATIENT PRESENTATION* Height: 188cm (74in ) S/D Pressure: 139 / 82 Weight: 136.1kg (299.4lb ) BSA: 2.72m^2 Test start time: 11:00 AM. Test stop time: 11:30 AM. ATTENDING Eyad Gonzalez MD ORDERING Eyad Gonzalez MD REFERRING Larry Kaufman REFERRING Eyad Gonzalez t PERFECT BIND MACHINE OPERATOR Sayra Johnson PERFORMING [facility], Op *PROCEDURE DATA* Procedure information: This study was i nterpreted by [facility]. Pertinent imag es and digital data are archived for permanent storage and are available for subsequent review. Study status: Routine. Transthoracic echocardiography. M-mode, complete 2D, complete spectral Doppler, and color Doppler. A Transthora cic Echocardiogram was performed. Scanning was performed from the paraster nal, apical, subcostal, and suprasternal notch acoustic windows. Images were obta ined using a Stephy IE33 8 cardiac ultrasound machine. Image quality was ad equate. The study was technically limited due to body habitus. Study comp letion: The patient tolerated the procedure well. There were no complicati ons. *INDICATIONS AND HISTORY* Indications: (425.18). *CARDIAC ANATOMY* Left ventricle: The cavity size was nor mal. Wall thickness was normal. Systolic function was at the lower limits of norm al. The estimated ejection fraction was 50%. Wall motion was normal; there were no regional wall motion abnormalities. Aortic valve: Trileaflet; normal thick ness leaflets. Mobility was not restricted. Doppler: Transvalvular jaylen ocity was within the normal range. There was no stenosis. No regurgitation. Aorta: Aortic root: The aortic root was normal in size. Mitral valve: Structurally normal valv e. Mobility was not restricted. Doppler: Transvalvular velocity was wit hin the normal range. There was no evidence for stenosis. No regurgitation . Left atrium: The atrium was normal in s ize. Right ventricle: The cavity size was no rmal. Wall thickness was normal. Systolic function was normal. Pulmonic valve: Doppler: Transvalvul ar velocity was within the normal range. There was no evidence for stenosis. No regurgitation. Tricuspid valve: Structurally normal v alve. Doppler: Transvalvular velocity was within the normal range. Th ere was no evidence for stenosis. No regurgitation. Pulmonary artery: Systolic pressure c ould not be accurately estimated. Right atrium: The atrium was normal in size. Pericardium: There was no pericardial e ffusion. Systemic veins: Inferior vena cava: Poorly visualized. *MEASUREMENT TABLES* 2D measurements Normal Left ventricle Area, ED, A4C 28.1 cm^2 17.7-47.3 Area, ES, A4C 17.6 cm^2 7.9-31.5 Fractional area change, A4C 37 % --------- Area, ED, A2C 27.7 cm^2 --------- Area, ES, A2C 20.2 cm^2 8.9-28.1 Fractional area change, A2C *27 % 33.7-69 Volume, ED, MOD, 1-plane 82 ml --------- Volume, ES, MOD, 1-plane 40 ml --------- Ejection fraction, MOD, 1-plane 51 % --------- Stroke volume, MOD, 1-plane 42 ml --------- Volume index, ED, MOD, 1-plane 30 ml/m^2 --------- Volume index, ES, MOD, 1-plane 15 ml/m^2 --------- Stroke index, MOD, 1-plane 15.5 ml/m^2 --------- Volume, ED, MOD, 2-plane 82 ml 62-170 Volume, ES, MOD, 2-plane 46 ml --------- Stroke volume, MOD, 2-plane 36 ml --------- Volume index, ED, MOD, 2-plane 30 ml/m^2 --------- Volume index, ES, MOD, 2-plane 17 ml/m^2 --------- Stroke index, MOD, 2-plane 13.3 ml/m^2 --------- Aorta Root diameter, ED 36 mm --------- Ascending aorta anterior-posterior diame ter, S 38 mm --------- Left atrium Anterior-posterior dimension 33 mm --------- Anterior-posterior dimension index 1.21 cm/m^2 <2.2 Superior-inferior dimension, A4C 33 mm 29-53 Doppler measurements Normal Left ventricle Ea, lateral annulus, tissue Doppler 6.47 cm/s --------- E/Ea, lateral annulus, tissue Doppler 8.1 --------- Mitral valve Peak E-wave velocity 52.3 cm/s --------- Peak A-wave velocity 57.8 cm/s --------- Deceleration time *248 ms 150-230 Peak E/A ratio 0.9 --------- Legend: Mean values are shown as u=mean value. Asterisk (*) cruz values outside specif ied normal range. I have personally reviewed the images an d have reviewed and edited the reported findings. Electronically signed by Heron Gale MD 04/16/2014 12:42 Performing Organization Address City/State/ZIP Code Phon e Number OP CARDIOLOGY EKG 12-LEAD (04/02/2014 12:12 EST) Specimen Narrative [facility] EKG - 04/02/2014 13:3 3 EST ? [facility] ? Test Date: ?2014-04-02 Pat Name: ? OMER AKBAR ?Department: ?? [facility] Card ? Room: ? Gender: ? M ?Wheel And Caster Repairer: ?? [id number] : ?1975 ? Requested By: CARLOS Barrios Order Number: [id number] ? Reading MD: ?? EYAD GONZALEZ MD ? Measurements Intervals ?[place] ? Rate: ? 83 ? P: ?61 TX: ? 168 ?QRS: ?-50 QRSD: ? 101 ?T: ?34 QT: ? 368 ? QTc: ?433 ? Interpretive Statements SINUS RHYTHM LEFT ANTERIOR FASCICULAR BLOCK No previous ECG available for comparison I reviewed the tracing and have either a greed or edited the findings in this report. Electronically Signed On 13:33:58 EST by EYAD GONZALEZ MD. Procedure Note Eyad Gonzalez MD - 04/02/2014 [facility] T est Date: 2014-04-02 Pat Name: OMER Douglas epartment: Chaya Coyne R oom: Gender: M T echnician: [id number] : 1975 R equested By: CARLOS Barrios Order Number: [id number] R kennedy MD: EYAD GONZALEZ MD Measure ments Intervals A xis Rate: 83 P : 61 TX: 168 Q RS: -50 QRSD: 101 T : 34 QT: 368 QTc: 433 Interpretive Statements SINUS RHYTHM LEFT ANTERIOR FASCICULAR BLOCK No previous ECG available for comparison I reviewed the tracing and have either a greed or edited the findings in this report. Electronically Signed On 13:33:58 EST by EYAD GONZALEZ MD. Performing Organization Address City/State/ZIP Code Phon e Number [facility] EKG documented in this encounter Visit Diagnoses Diagnosis Hypertrophic cardiomyopathy (HCC-CMS) (H CC) - Primary Other hypertrophic cardiomyopathy documented in this encounter Orders Procedures Count Last Ordered Date First Ordered Date ECG REPORT - SCANNED 1 04/03/2014 documented in this encounter Care Teams Personal Computer Network Analyst Relationship Specialty Start Date End Date Larry Kaufman MD PCP - General 04/01/14 [address] [place] [address] documented as of this encounter
--- OUTSIDE RECORDS SUMMARY | 2021-06-18 20:51 | XMS_ITS | Encounter Summary ---
:1975 Author Organization [facility] Address [address] [place] [address] Care Team Providers Name Role Phone Alberto Kaufman MD Primary Care Provider Encounter Details Date Type Department Care Team Description 05/28/2014 Phlebotomy Only [facility] Spout Liner, [facility] Outpatient effusion (Primary Dx) [address] [place] [address] Social History Tobacco Use Types Packs/Day Years Used Date Light Tobacco Smoker 0.25 Sex Assigned at Date Recorded Not on file documented as of this encounter Plan of Treatment Not on filedocumented as of this encounter Procedures Procedure Name Priority Date/Time Associated Diagnosis Comme nts PH, PLEURAL FLUID Routine 05/28/2014 12:32 Parapneumonic effus ion Results for this (FDA APPROVED FOR EDT procedure are in PLEURAL FLUID the results ONLY) section. ANAEROBE Routine 05/28/2014 12:32 Parapneumonic effusion R esults for this CULTURE/SMEAR(INC. EDT procedure are in AEROBES), FLUID the results section. TOTAL PROTEIN, Routine 05/28/2014 12:32 Parapneumonic effusion Results for this FLUID EDT procedure are i n the results section. LDH, FLUID Routine 05/28/2014 12:32 Parapneumonic effusion R esults for this EDT procedure are i n the results section. GLUCOSE, FLUID Routine 05/28/2014 12:32 Parapneumonic effusion Results for this EDT procedure are i n the results section. documented in this encounter Results ANAEROBE CULTURE/SMEAR(INC. AEROBES), FLUID (05/28/2014 12:32 EDT) Gram Smear Result Polys [facility] present LABORATORY SERVICES Gram Smear Result No bacteria seen [facility] LABOR[facility]ORY SERVICES Result No growth [facility] LABOR[facility]ORY SERVICES Specimen Other (qualifier value) - Pleural Fluid Performing Organization Address [facility] Phon e Number [facility] LABOR[facility]ORY [address] [place] [address] SERVICES GLUCOSE, FLUID (05/28/2014 12:32 EDT) Glucose, Fluid 91 mg/dl [facility] Comment: LABORATORY SERVICES Assay results and reference range values have not been validated or established for this body fluid. Interpret results with caution due to sample matrix. Assay results should be used in combination with clinical condition. Specimen Body fluid (substance) - Pleural Fluid Performing Organization Address [facility] Phon e Number [facility] LABOR[facility]ORY [address] [place] [address] SERVICES LDH, FLUID (05/28/2014 12:32 EDT) Pathologist Sig nature LDH, Fluid 1,559 U/L [facility] Comment: LABORATORY SERVICES Assay results and reference range values have not been validated or established for this body fluid. Interpret results with caution due to sample matrix. Assay results should be used in combination with clinical condition. Specimen Body fluid (substance) - Pleural Fluid Performing Organization Address [facility] Phon e Number [facility] LAB[facility] [address] [place] [address] SERVICES TOTAL PROTEIN, FLUID (05/28/2014 12:32 EDT) Protein, Fluid 4.5 g/dl [facility] Comment: LABORATORY SERVICES Assay results and reference range values have not been validated or established for this body fluid. Interpret results with caution due to sample matrix. Assay results should be used in combination with clinical condition. Specimen Body fluid (substance) - Pleural Fluid Performing Organization Address [facility] Phon e Number [facility] LABOR[facility]ORY [address] [place] [address] SERVICES PH, PLEURAL FLUID (05/28/2014 12:32 EDT) Pleural Fluid pH 7.35 [facility] Comment: LABORATORY SERVICES Reference range: Pleural fluid Exudate: 7.30-7.45 Transudate: 7.40-7.55 A pleural fluid pH <7.30 is generally associated with a complicated parapneumonic effusion, empyema, connective tissue disease of the pleura or malignant effusion. Specimen Body fluid (substance) - Pleural Fluid Performing Organization Address City/State/ZIP Code Phon e Number [facility] [address] [place] [address] SERVICES documented in this encounter Visit Diagnoses Diagnosis Parapneumonic effusion - Primary Other specified forms of effusion, excep t tuberculous documented in this encounter Care Teams Screen Operator Relationship Specialty Start Date End Date Larry Kaufman MD PCP - General 04/01/14 [address] [place] [address] documented as of this encounter
--- OUTSIDE RECORDS SUMMARY | 2021-06-18 20:51 | XMS_ITS | Encounter Summary ---
:1975 Author Organization [facility] Address [address] [place] [address] Care Team Providers Name Role Phone Alberto Kaufman MD Primary Care Provider Reason for Referral Radiology Services (Routine) - Closed Specialty Diagnoses / Procedures Referred By Contact Refer red To Contact Diagnoses Parapneumonic effusion Amalia Vasquez MD Procedures IR THORACENTESIS [address] [place] [address] Referral ID Status Reason Start Date Expiration Date Visits Requ ested Visits Authorized [id number] Closed 05/27/2014 1 1 Encounter Details Date Type Department Care Team Description 05/27/2014 Orders Only [facility] Jared Ahmadi Para pneumonic effusion Pulmonology & BMD (Primary Dx) Critical Care - Main [address] [place] [address] [address] [facility] [address] [place] [address] Social History Tobacco Use Types Packs/Day Years Used Date Light Tobacco Smoker 0.25 Sex Assigned at Date Recorded Not on file documented as of this encounter Progress Notes Jared Ahmadi MD - 05/27/2014 5196 EDT Pt. With parapneumonic effusion, will need thora with reflex to therapeutic. Jared Ahmadi MD documented in this encounter Plan of Treatment Not on filedocumented as of this encounter Procedures Procedure Name Priority Date/Time Associated Diagnosis Comme nts IR THORACENTESIS Routine 05/28/2014 12:10 Parapneumonic effusi on Results for this EDT procedure are i n the results section. documented in this encounter Results ANAEROBE CULTURE/SMEAR(INC. AEROBES), FLUID (05/28/2014 12:32 EDT) Gram Smear Result Polys [facility] present LABORATORY SERVICES Gram Smear Result No bacteria seen [facility] Result No growth [facility] Specimen Other (qualifier value) - Pleural Fluid Performing Organization Address [facility] Phon e Number [facility] [address] [place] [address] SERVICES GLUCOSE, FLUID (05/28/2014 12:32 EDT) Glucose, Fluid 91 mg/dl [facility] Comment: LABORATORY SERVICES Assay results and reference range values have not been validated or established for this body fluid. Interpret results with caution due to sample matrix. Assay results should be used in combination with clinical condition. Specimen Body fluid (substance) - Pleural Fluid Performing Organization Address [facility] Phon e Number [facility] [address] [place] [address] SERVICES LDH, FLUID (05/28/2014 12:32 EDT) Pathologist Sig nature LDH, Fluid 1,559 U/L [facility] Comment: LABORATORY SERVICES Assay results and reference range values have not been validated or established for this body fluid. Interpret results with caution due to sample matrix. Assay results should be used in combination with clinical condition. Specimen Body fluid (substance) - Pleural Fluid Performing Organization Address City/[facility]/ZIP Code Phon e Number [facility] [address] [place] [address] SERVICES TOTAL PROTEIN, FLUID (05/28/2014 12:32 EDT) Protein, Fluid 4.5 g/dl [facility] Comment: LABORATORY SERVICES Assay results and reference range values have not been validated or established for this body fluid. Interpret results with caution due to sample matrix. Assay results should be used in combination with clinical condition. Specimen Body fluid (substance) - Pleural Fluid Performing Organization Address [facility]/ZIP [facility] Phon e Number [facility] [address] [place] [address] SERVICES PH, PLEURAL FLUID (05/28/2014 12:32 EDT) Pleural Fluid pH 7.35 [facility] Comment: LABORATORY SERVICES Reference range: Pleural fluid Exudate: 7.30-7.45 Transudate: 7.40-7.55 A pleural fluid pH <7.30 is generally associated with a complicated parapneumonic effusion, empyema, connective tissue disease of the pleura or malignant effusion. Specimen Body fluid (substance) - Pleural Fluid Performing Organization Address City/State/ZIP Code Phon e Number [facility] [address] [place] [address] SERVICES IR THORACENTESIS (05/28/2014 12:10 EDT) Anatomical Region Laterality Modality Other Specimen Narrative [facility] - 05/29/2014 12:53 EDT IR THORACENTESIS ??05/28/2014 2:47 PM Signs and Symptoms/Comments: ??Right-bryon ed pleural effusion, pneumonia. Comparisons: CT chest 13 hours prior. Informed consent was obtained from the p atient following a detailed explanation of the risks and benefits of the procedure as well as alternative diagnostic and therapeutic m ethods including no further procedures. Findings: An ultrasound examination of t he right chest demonstrates the presence of a mild to moderate-sized right pleural effusion. Using sterile technique and under local anesthesia, a 5 Finnish thoracentesis catheter was advanced into the rightpleural space and serosanguineous fluid removed. ??A total of 700cc was withdrawn and sent for analysis. The patient tolerated the procedure well without complication. Suzi Schulz, was personally douglas pervised in the performance of this procedure. Impression: Successful ultrasound-guided right thoracentesis yielding 700cc of serosanguineous fluid sent for analysis. Procedure Note Ren Rowell MD - 05/29/2014 IR THORACENTESIS 05/28/2014 2:47 PM Signs and Symptoms/Comments: Right-side d pleural effusion, pneumonia. Comparisons: CT chest 13 hours prior. Informed consent was obtained from the p atient following a detailed explanation of the risks and benefits of the procedure as well as alternative diagnostic and therapeutic m ethods including no further procedures. Findings: An ultrasound examination of t he right chest demonstrates the presence of a mild to moderate-sized right pleural effusion. Using sterile technique and under local anesthesia, a 5 Finnish thoracentesis catheter was advanced into the rightpleural space and serosanguineous fluid removed. A total of 700cc was withdrawn and sent for analysis. The patient tolerated the procedure well without complication. Suzi Schulz, was personally douglas pervised in the performance of this procedure. Impression: Successful ultrasound-guided right thoracentesis yielding 700cc of serosanguineous fluid sent for analysis. Performing Organization Address City/State/ZIP Code Phon e Number [facility] documented in this encounter Visit Diagnoses Diagnosis Parapneumonic effusion - Primary Other specified forms of effusion, excep t tuberculous documented in this encounter Care Teams Train Announcer Relationship Specialty Start Date End Date Larry Kaufman MD PCP - General 04/01/14 [address] [place] [address] documented as of this encounter
--- OUTSIDE RECORDS SUMMARY | 2021-06-18 20:51 | XMS_ITS | Encounter Summary ---
:1975 Author Organization [facility] Address [address] [place] [address] Care Team Providers Name Role Phone Alberto Kaufman MD Primary Care Provider Reason for Visit Reason Comments Skin Exam PRP outbreak Encounter Details Date Type Department Care Team Description 10/15/2014 Office Visit [facility] Vinny Londono MD [address] [facility] [place] [address] Neoplasm of unspecified nature of bone, soft tissue, and skin (Primary Dx); Dermatology - [facility] Mehnaz Ascencio MD [address] [place], [place] [id number] Seborrheic dermatitis; [place] Eczema of both hands [address] [place], [place] [id number] Social History Tobacco Use Types Packs/Day Years [...] a physical, mental, or emotional condition, No 10/15/2014 does this person have difficulty doing errands alone such as visiting a doctor's office or shopping? Cognitive Status Response Date of Assessment Because of a physical, mental, or emotional condition, No 10/15/2014 does this person have serious difficulty concentrating, remembering, or making decisions? documented as of this encounter Discharge Diagnoses Diagnosis 692.9 DERMATITIS NOS[ICD-9-CM] documented in this encounter Patient Instructions Patient InstructionsSandi Mark A.E. - 10/15/2014 15:50 EDT DERMATOLOGY WOUND CARE INSTRUCTIONS FOR SKIN BIOPSY The DRESSING/BANDAID should remain in place for 24 hours. You may shower or bathe after 24 hours; remove the bandage and replace it after the shower. DISCOMFORT: Extra-Strength Tylenol, as directed by conservator artifacts, usually relieves any pain you may have. BLEEDING: You may notice some blood on the edges of the dressing the first day and this is NORMAL.If the bleeding soaks through the dressing, remove the dressing, and apply firm, steady pressure with a moist clean wash cloth for fifteen minutes. If the bleeding stops, redress the wound, if not, call our office at . ACTIVITY: You may resume normal activity in 1 day unless instructed otherwise. WOUND CARE: Wash hands with soap and water before changing the dressing. Change the dressing daily and when it becomes wet. Clean the wound daily with mild soap and water. You may gently loosen any crusts with a cotton swab.The wound may be slightly tender and may bleed a small amount. A small amount of discharge is normal, and occasionally this appears yellow. Apply a thin layer of sterile petroleum jelly over the wound. Cover the wound with a Telfa (non-stick) dressing or bandage. It is important to keep the wound covered. CONTACT THE OFFICE IF YOU EXPERIENCE: increased redness warmth to touch increased pain drainage with a foul odor rapid swelling of the wound fever or chills Please call our office or . documented in this encounter Ordered Prescriptions Prescription Sig Dispensed Refills Start Date End Date clobetasol (TEMOVATE) Apply 60 g topically 45 g 1 03/201410/29/2014 0.05 % to affected area 2 ointmentIndications: times daily Apply Eczema of both hands topically twice a day to affected areas. Do not apply to face, armpit or groin. triamcinolone (KENALOG) Apply topically to 80 g 3 03/201409/11/2015 0.1 % creamIndications: affected area 2 Eczema of both hands times daily FOR THE CHEST ketoconazole (NIZORAL) 2 Apply topically to 30 g 11 03/201409/11/2015 % cream affected area daily For the forehead, temples, and face ketoconazole (NIZORAL) 2 Apply topically to 1 Bottle 11 03/201409/11/2015 % shampooIndications: affected area, leave Seborrheic dermatitis on 3-5 minutes then rinse off documented in this encounter Discharge Disposition Disposition Code Departure Means Destination Auto Discharge documented in this encounter Progress Notes Cate Cuevas - 10/23/2014 0803 EDT Quick Note: Patient is aware of biopsy results. Cate Cuevas 10/23/2014 8:03 Sandi Velarde A.E. - 10/15/2014 1550 EDT Patient Education Topic: Wound care Method: Verbal Taught to: Patient Barriers: None Outcomes: independent and verbalized understanding Signature:Sandi Lund 10/15/2014 15:50 Mehnaz Ellis MD - 10/15/2014 1527 EDT Images from the original note were not included. Dermatology Outpatient Visit Note Resident clinic Chief Complaint Patient presents with ??? Skin Exam PRP outbreak SUBJECTIVE Mr. Akbar is a 38 y.o. 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 The patient reports this has been going on since 2000. [facility] Silvia Blake. They diagnosed him with PRP per the patients recollection. They did a biopsy of his chest 10+ years ago but the biopsy came back negative for anything per patient. His symptoms are mainly scaling on the palms and hands, with occasional red bumps on his chest. His hands and feet are extremely itchy when they are scaly. He flares more in the summer,he rarely has issues in the winter time. His hands remain scaly throughout the summer most walker, and are extremely itchy. He has scaling of the face and scalp as well. For treatment the patient usually uses clobetasol ointment for on his hands and feet, twice a day. At night he applies the ointment then occludes his feet and hands with plastic bags. 6 weeks ago hishands, feet, and chest began flaring significantly. He reports having waxy red shiny palms, feet, and forearms. Four weeks ago his PCP Dr. Kaufman started him on a 21 day prednisone taper. The tapercleared his hands, feet, and chest up within several days. However as soon as the taper stopped hislesions started to return. He reports today is better than it was 4 weeks ago. He denies any history of childhood rashes. His brother has sensative skin and rashes. Several other family members also have sensitive skin. See documentation in [facility] for medical, surgical, social and family history, and the review of systems which I reviewed at this visit. He has a current medication list which includes the following prescription(s): clobetasol and prednisone. He is allergic to penicillins. Objective Mr. Akbar is healthy male that is alert and oriented to person, place and time. He has Fitzpatricktype I skin. Cutaneous exam was performed today of the scalp, face, neck, upper extremities, hands, trunk, lower extremities, feet. The remainder of the skin examination was otherwise normal except for: 1. On the palmar hands, well demarcated to palmar aspect are thin, lichinified scaly plaques. 2. On the feet bilaterally are yellow thick hyperkeratotic plaques demarcated to the plantar surfaces bilaterally. The dorsal surfaces of the feet have thinner erythematous patches. 3. On the sternum and chest are red folliculocentric papules 4. 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 There is palmoplantar keratoderma and folliculocentric papules, however there is not the classic orange-redwaxy plaques on the palms and soles. There also are not the classic plaques on the trunk. Type I adult pityriasis rubra pilaris (adult classic type) usually fades after three years. We are seeing the patient 1 week after a prednisone taper so this may not be the complete clinical picture. He reports having waxy red-orange plaques on his hands prior to starting the taper, this clinically sounds like pityriasis rubra pilaris. We will need to confirm with follow up after his lesions have progressed. 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 DEMETRIA was negative for fungal elements today, however moccasin type tinea pedis and manuum are on the differential. The clobetasol has helped somewhat, however not completely so he likely will need systemic therapy such as retinoids or biologics (depending on final diagnosis). Plan: 1. I will biopsy the papules on his chest- hoping to confirm the diagnosis of pityriasis rubra pilaris. 2. Continue clobetasol 0.05% ointment twice daily, under occlusion at night. 3. Start ketoconazole 2% shampoo once daily for scalp, dispense 1 bottle, Refill 11. 4. Start ketoconazole 2% cream once daily for face scale Dispense 30g, Refill 11 5. Start triamcinolone 0.1%cream on the chest twice daily. Dispense 80g. Follow up: With me in 1 week. My hopes are that his disease will present as it has in the past, to help with clinical diagnosis. PUNCH BIOPSY PATIENT : Omer Akbar : MRN: [id number] SURGEON: Mehnaz Ascencio MD The indication, risks, benefits and alternatives to this procedure were discussed in detail in with the patient and all questions were answered. Informed consent was obtained in writing. PROCEDURE NOTE: Specimen A Procedure: Punch Biopsy Site: sternum Anesthesia: 1% lidocaine with epinephrine 1:100,000 local infiltration Prep: Alcohol The lesion was prepped and anesthetized with local anesthesia. The specimen was removed with a 4.0 mm punch trephine. Hemostasis was achieved with pressure. The wound was closed with 4.0 Vicryl Rapide(coated polyglactin 910) suture. A sterile dressing was applied over petrolatum ointment. Verbal andwritten wound care instructions were given. The specimen was submitted to pathology for histologicalevaluation. Mehnaz Ascencio MD 10/15/2014 15:27 Attestation Statement: I saw and examined the patient with the resident/fellow. I agree with thefindings and plan of care documented in the resident's/fellow's note. I was present for the entire procedure. VINNY LONDONO MD 10/16/2014 12:34 design checker Latrice Campo - 10/15/2014 1521 EDT Review of Systems Constitutional: Negative for [...] sleep disturbance. The patient is not nervous/anxious. documented in this encounter Plan of Treatment Scheduled Orders Name Type Priority Associated Diagnoses Order S chedule SURGICAL PATHOLOGY- Pathology Routine Neoplasm of unspecifi ed Ordered: 10/15/2014 ORDER ONLY nature of bone, soft tissue, and skin documented as of this encounter Procedures Procedure Name Priority Date/Time Associated Diagnosis Comme nts SURGICAL PATHOLOGY Routine 10/15/2014 11:25 Resul ts for this EDT procedure are i n the results section. documented in this encounter Results SURGICAL PATHOLOGY (10/15/2014 11:25 EDT) Pathology SURGICAL PATHOLOGY REPORT [facility] Report: Reports generated via electronic interface conta in original data; [facility] however they are lacking the format of the original re port. SERVICES Caution should be taken when reading/interpreting unfo rmatted reports. Name: ? OMER AKBAR ? Accession #: ? [id number] ? : ? 1975 (Age: [age]) ??M ? Collect Date: ? 10/15/2014 ? Location: ? DERM ? Receive Date: ? 5 ? Provider: VINNY LONDONO MD Copy to: MEHNAZ ASCENCIO MD ? Final Pathologic Diagnosis: SKIN OF STERNUM, PUNCH BIOPSY: - Psoriasiform dermatitis. ??See comment. Comment: The biopsy shows overlapping features of psorias is and seborrheic dermatitis. The extent of the interfollicular parakeratosis with e ntrapped neutrophils slightly favors psoriasis. ? ?A psoriasiform drug-related eruption would also be a consideration given the presence of eosinophils within the inflammatory infiltrate. ??The features are not characteristi c of pityriasis rubra pilaris (PRP) given the amount of serum within the horn, neutrophilic exocytosis, and lack of characteristic parakeratotic pattern. ??No fun gal organisms are identified on sections prepared with PAS stain. ??(Dr. Graves)/[facility] Microscopic Description: Sections consist of a bisected punch biopsy of skin to the deep reticular dermis. ??The stratum corneu m is thickened by relatively confluent parakeratosis. The parakeratosis has a sma ll amount of entrapped serum and neutrophils. ??The epidermis shows a moderate d egree of psoriasiform hyperplasia with elongate and anastomosing rete ridges. ?? There is mild exocytosis of lymphomononuclear cells and areas of diminished granular layer. ??In a few of the sections, the parakeratosis is accentuated at the ostia of follicles where there are clusters of neutrophils. ??The superficial dermis has a patchy mild perivascular infiltrate. ??The infiltrate includes a small number of eosinophils in addition to lymphomononuclear cells. ??Multiple a dditional deeper sections show similar features. ??No fungal organisms are identified on sect ions prepared with PAS-amylase stain. ??(Dr. Graves)/[facility] Document reviewed and electronically signed by: JESSICA GRAVES MD Report ??Date: 10/21/2014 15:26 By the signature above, the attending physician certif ies that he/she has personally conducted a gross and/or microscopic examin ation of the described specimens and rendered or confirmed the above diagnosi s. 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 Gross Description: ? Received in formalin labelled with proper patient identification (initials B, P) and sternum is a punch biopsy of pink-ta n hairbearing skin (0.4 cm in diameter and 0.5 cm in thickness). Bisected and entire ly submitted in 1. Norah Cook 10/16/2014 3:55 PM End of Report Specimen Performing Organization Address City/State/ZIP Code Phon e Number [facility] [address] [place] [address] SERVICES documented in this encounter Visit Diagnoses Diagnosis Neoplasm of unspecified nature of bone, soft tissue, and skin - Primary Seborrheic dermatitis Seborrheic dermatitis, unspecified Eczema of both hands documented in this encounter Historical Medications This list may reflect changes made after this encounter. Medication Sig Dispensed Refills Start Date End Date PREDNISONE ORAL Take by mouth 0 2015 clobetasol (TEMOVATE) Apply topically 2 0 09/11/2015 0.05 % cream times daily added in this encounter Care Teams Mill Labor Supervisor Relationship Specialty Start Date End Date Larry Kaufman MD PCP - General 04/01/14 [address] [place] [address] documented as of this encounter
--- OUTSIDE RECORDS SUMMARY | 2021-06-18 20:51 | XMS_ITS | Encounter Summary ---
:1975 Author Organization [facility] Address [address] [place] [address] Care Team Providers Name Role Phone Alberto Kaufman MD Primary Care Provider Reason for Visit Reason Onset Date Comments Appointment Related 12/02/2015 Encounter Details Date Type Department Care Team Description 12/02/2015 Telephone [facility] Olivia Mckinley MD Appointment Related Dermatology - Main [address] [place] [address] [address] [facility] [address] Social History Tobacco Use Types Packs/Day Years [...] encounter Miscellaneous Notes Telephone Encounter - Latrice Moon 12/22/2015 1409 EST Attempted to reach patient 3 times without response. Encounter is being closed Latrice Sarai 12/22/2015 14:10 elephone Encounter - Latrice Moon - 12/07/2015 1640 EDT Called and left message for patient. He is scheduled for 12/08 with Parviz Mckinley MD. Asked patient to call back and confirm the appointment elephone Encounter - Kelley Campos - 12/02/2015 0809 EDT Patient needs to reschedule appointment due to the flu. Please call patient to schedule an appointment sooner than next available. documented in this encounter Plan of Treatment Not on filedocumented as of this encounter Visit Diagnoses Not on filedocumented in this encounter Care Teams Acoustic Engineer Relationship Specialty Start Date End Date Larry Kaufman MD PCP - General 04/01/14 [address] [place] [address] documented as of this encounter
[2021-06-19 12:13] LABS: COVID-19 RT-PCR UVMMC Result Negative (Negative)
== END 2021-06-18 20:46 | disposition home or self-care (01) ==
LOC: NCHCN 20:45
PROVIDERS: PCP Internal Medicine; Visit Provider Internal Medicine
DX: Z20.822 Contact with and (suspected) exposure to COVID-19 (principal)
CPT/HCPCS: U0003

== ENCOUNTER 2023-01-30 11:39 | Outpatient (REF) | payer OTHER, SELFPAY ==
[2023-01-30 15:18] LABS: Abs Immature Grans 0.02 10^3/uL (0.0-0.06); Absolute Basophil Count 0.09 10^3/uL (0.0-0.2); Absolute Eosinophil Count 0.56 10^3/uL (0.0-0.7); Absolute Lymphocyte Count 2.13 10^3/uL (1.2-3.4); Absolute Monocyte Count 0.86 10^3/uL (0.1-0.8); Absolute Neutrophil Count 3.41 10^3/uL (1.2-6.7); Basophils % 1.3; Eosinophils % 7.9; HCT 51.8 % (40.0-50.0); HGB 17.2 g/dL (13.5-17.5); Immature Grans % 0.3; Lymphocytes % 30.1; MCH 30.2 pg (27.0-33.0); MCHC 33.2 % (32.0-36.0); MCV 91 fL (80-95); MPV 10.8 fL (8.0-11.0); Monocytes % 12.2; Neutrophils % 48.2; Platelet Count 244 10^3/uL (130-400); RDW 13.6 % (11.8-14.1); RDW-SD 45.5 fL; WBC 7.07 10^3/uL (4.4-10.8)
[2023-01-30 15:27] LABS: ALT 33 U/L (16-63); AST 31 U/L (15-37); Albumin 3.5 g/dL (3.4-5.0); Alkaline Phosphatase 99 U/L (46-116); Anion Gap 8.2 mmol/L (3-11); BUN 15 mg/dL (7-18); Bilirubin, Total 1.1 mg/dL (0.2-1.0); CO2 25.8 mmol/L (21.0-32.0); CREATININE 1.3 mg/dL (0.70-1.30); Calcium 9.6 mg/dL (8.5-10.1); Chloride 102 mmol/L (98-107); Estimated GFR 67.76 (mL/min/1.73m2); Glucose 122 mg/dL (74-106); Lipase 24 U/L (16-77); Potassium 4.4 mmol/L (3.5-5.1); Sodium 136 mmol/L (136-145); Total Protein 7.8 g/dL (6.4-8.2)
[2023-01-30 15:42] LABS: Hemoglobin A1C 5.4 % (<5.7)
== END 2023-01-30 11:40 | disposition home or self-care (01) ==
LOC: NCHCN 11:39
PROVIDERS: PCP Internal Medicine; Visit Provider Family Medicine
DX: R11.2 Nausea with vomiting, unspecified (principal); R73.09 Other abnormal glucose; E66.01 Morbid (severe) obesity due to excess calories
CPT/HCPCS: 80053; 83690; 83036; 85025